=== PATIENT | male | born 1980 | race Caucasian/White ===

== ENCOUNTER → 2016-05-05 | Outpatient (CLI) | payer OTHER ==
[2016-03-04 19:56] VITALS: BP 117/78
[~2016-05-05] MED LIST: ACID1TAB11 PO; ALLA20GE TP; AMIT25TA PO; AZEL137S3 NS; BACI28.43 TP; BACL10TA PO; BACL20TA PO; BISA10SU2 RC; BISA5TAB4 PO; CALC-316 PO; CELE100C PO; CELE200C PO; CHOL10002 PO; CLON0.1T PO; CYCL10TA2 PO; DIAZ5TAB PO; DOCO2CRE TP; DOCU-27 PO; FENT1PAT19 TP; FENT1PAT91 TD; FLUC100T7 PO; FLUC150T PO; FLUT16SP NS; GABA-586 PO; GABA800T2 PO; GUAI-297 PO; GUAI400T27 PO; HC/M25OI TP; HYDR-2666 PO; HYDR-2672 PO; HYDR-2867 PO; HYDR28OI2 TP; IBUP200T77 PO; IPRA3AMP IH; KETO5DRO3 EACHEYE; LACT20SO PO; LIDO15CR9 TP; LIDO5JEL3 MM; LORA10TA3 PO; MAGN2400 PO; MAGN400O4 PO; MELA5TAB PO; METH1TAB20 PO; MIDO10TA PO; MIDO5TAB PO; MINE120C TP; MULT-460 PO; NITR1OIN TD; ONDA4TAB7 PO; OXYB5TAB7 PO; PANT20TA2 PO; PANT40TA5 PO; PILO7.5T PO; PREG25CA PO; PREG50CA PO; SENN8.6T3 PO; SENN8.6T99 PO; SODI1PAC NS; TETR250C3 PO; [UNRECOGNIZED DRUG - CODE] MM; [UNRECOGNIZED DRUG - CODE] PO; [UNRECOGNIZED DRUG - CODE] PO; [UNRECOGNIZED DRUG - CODE] TP
[2016-05-05 16:53] LABS: BILIRUBIN,URINE NEGATIVE (NEG); GLUCOSE,URINE 500 mg/dL (NEG); NITRITE,URINE NEGATIVE (NEG); PH,URINE 5.5; PROTEIN,URINE NEGATIVE (NEG-TRACE); UROBILINOGEN,URINE 0.2 mg/dL (0.2 mg/dL)
[2016-05-05 17:02] LABS: BACTERIA,URINE MANY /HPF (0-FEW); WBC,URINE TNTC /HPF (0-4)
[2016-05-05 17:03] LABS: SQUAMOUS EPITHELIAL CELL,UR MOD /LPF
== END | disposition home or self-care (01) ==
LOC: SPEC 16:21
PROVIDERS: ATTEND Family Medicine
DX: R82.90 Unspecified abnormal findings in urine (principal)
CPT/HCPCS: 81001; 87086

== ENCOUNTER → 2016-05-15 | Outpatient (CLI) | payer OTHER ==
[2016-03-04 19:56] VITALS: BP 117/78
[~2016-05-15] MED LIST changes: +ACET500T68 PO; +ASPI81TA9 PO; +ATOR40TA59 PO; +MULT-638 PO; +[UNRECOGNIZED DRUG - CODE] PO
[2016-05-15 15:58] LABS: BILIRUBIN,URINE NEGATIVE (NEG); GLUCOSE,URINE >=1000 mg/dL (NEG); NITRITE,URINE NEGATIVE (NEG); PROTEIN,URINE NEGATIVE (NEG-TRACE); UROBILINOGEN,URINE 0.2 mg/dL (0.2 mg/dL)
[2016-05-15 16:07] LABS: BACTERIA,URINE 0 /HPF (0-FEW); RBC,URINE 0 /HPF (0-2); YEAST,URINE PRESENT /HPF
== END | disposition home or self-care (01) ==
LOC: SPEC 15:40
PROVIDERS: ATTEND Family Medicine
DX: N39.0 Urinary tract infection, site not specified (principal)
CPT/HCPCS: 81001

== ENCOUNTER 2016-05-16 23:36 | Inpatient (IN) | payer MEDICARE, OTHER ==
[~2016-05-16] VITALS: Ht 182.9 cm; Wt 111.1 kg
[~2016-05-16 23:36] MED LIST changes: -ACET500T68 PO; -ASPI81TA9 PO; -ATOR40TA59 PO; -MULT-638 PO; -[UNRECOGNIZED DRUG - CODE] PO
[2016-05-16] MEDS: IV NORMAL SALINE 1000ML BAG 1,000 ML IV SCH (23:58)
[2016-05-17] VITALS (31 sets, daily range): BP systolic 48–111; BP diastolic 42–89
[2016-05-17] MEDS ORDERED: ACETAMINOPHEN 650 MG SUPP.RECT. ONE (00:09)
[2016-05-17] MEDS ORDERED: VANCOMYCIN PER PHARMACY MC PRN (00:30)
[2016-05-17] MEDS ORDERED: 0.9 % SODIUM CHLORIDE 10 ML DISP.SYRIN. IV PRN (00:30)
[2016-05-17] MEDS: IV NORMAL SALINE 1000ML BAG 1,000 ML IV SCH ×5 (00:32→20:15)
[2016-05-17 00:45] LABS: BASO % 0 % (0-3); EOS % 0 % (0-3); HEMOGLOBIN 14.6 g/dL (13.0-17.5); LYMPH # 0.9 x10^3/uL (1.0-4.8); LYMPH % 6 % (24-48); MEAN CORPUSCULAR HEMOGLOBIN 30 pg (25-35); MEAN CORPUSCULAR HGB CONC 33 g/dL (31-37); MEAN CORPUSCULAR VOLUME 90 fL (79-100); MONO % 9 % (0-9); NEUT % 86 % (31-73); PLATELET COUNT 273 x10^3/uL (140-400); RED BLOOD COUNT 4.88 x10^6/uL (4.30-5.70); RED CELL DISTRIBUTION WIDTH 14.9 % (11.5-14.5); WHITE BLOOD COUNT 16.7 x10^3/uL (4.0-11.0)
[2016-05-17 00:53] LABS: INR 1.5 (0.8-1.1); PROTHROMBIN TIME PATIENT 16.9 SEC (11.7-14.0)
[2016-05-17 00:54] LABS: CALCIUM 8.4 mg/dL (8.5-10.1); POTASSIUM 4.3 mmol/L (3.5-5.1)
[2016-05-17 01:00] LABS: ALBUMIN/GLOBULIN RATIO 0.5 (1.0-1.7)
[2016-05-17] MEDS ORDERED: HYDROCORTISONE SOD SUCC/PF 100 MG/2 ML VIAL. IV ONE (01:00)
[2016-05-17] MEDS ORDERED: VANCOMYCIN 2 GM in IV NORMAL SALINE 500ML BAG 500 ML IV ONE (01:00)
[2016-05-17 01:25] LABS: PLT ESTIMATE ADEQUATE (ADEQUATE); TOXIC GRANULATION SLIGHT
[2016-05-17] MEDS ORDERED: ONDANSETRON PF 4 MG/2 ML VIAL. IV PRN (01:45)
[2016-05-17 01:54] LABS: BILIRUBIN,URINE MODERATE (NEG); GLUCOSE,URINE NEGATIVE (NEG); NITRITE,URINE POSITIVE (NEG); PROTEIN,URINE 30 mg/dL (NEG-TRACE)
[2016-05-17 02:02] LABS: BACTERIA,URINE MANY /HPF (0-FEW); RBC,URINE 0 /HPF (0-2); SQUAMOUS EPITHELIAL CELL,UR FEW /LPF; YEAST,URINE PRESENT /HPF
[2016-05-17] MEDS: NOREPINEPHRINE VIAL 8 MG in IV NORMAL SALINE 250ML 250 ML IV PRN ×3 (02:28→21:16)
[2016-05-17] MEDS: NORMAL SALINE IV SCH ×2 (02:29→11:24)
[2016-05-17] MEDS: TOBRAMYCIN SULFATE IV SCH (02:29)
[2016-05-17 03:33] LABS: OBC FLU VALID
[2016-05-17] MEDS: TOBRAMYCIN PER PHARMACY MC PRN ×2 (03:49→13:33)
[2016-05-17] MEDS ORDERED: PNEUMOCOCCAL VAX SCREEN BY RX. MC PRN (04:45)
[2016-05-17] MEDS ORDERED: INFLUENZA VAX SCREEN BY RX. MC PRN (04:45)
[2016-05-17] MEDS ORDERED: ACID1TAB11 PO (05:06)
[2016-05-17] MEDS ORDERED: ATOR40TA59 PO (05:06)
[2016-05-17] MEDS ORDERED: [UNRECOGNIZED DRUG - CODE] PO (05:06)
[2016-05-17] MEDS ORDERED: ASPI81TA9 PO (05:06)
[2016-05-17] MEDS ORDERED: MULT-638 PO (05:06)
[2016-05-17] MEDS ORDERED: ACET500T68 PO (05:06)
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
[2016-05-17] MEDS ORDERED: MORPHINE SULFATE 2 MG/ML DISP.SYRIN. IV PRN (05:45)
[2016-05-17] MEDS ORDERED: LORAZEPAM 2 MG/ML VIAL IV PRN ×2 (05:45)
[2016-05-17] MEDS ORDERED: MORPHINE SULFATE 4 MG/ML DISP.SYRIN. IV PRN (05:45)
[2016-05-17] MEDS ORDERED: HALOPERIDOL LACT 5 MG/ML VIAL. IV PRN (05:45)
--- NOTE | 2016-05-17 06:39 | EKG ---
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 RI6.01 Unconfirmed report No previous ECG available for comparison Electronically Signed On 05-20-2016 13:53:03 [employer] by Nicholas Villegas
--- NOTE | 2016-05-17 07:24 | RAD ---
Exam performed: One view chest. History: Sepsis and fever. Date of service: 05/17/16. Comparison: One view chest from 03/01/16. Single AP semiupright portable view chest findings: Study somewhat limited due to rotation. Apparent cardiomegaly and central vascular congestion is noted. Small right pleural effusion with fluid in the minor fissure. Left lung is clear. Impression: Study somewhat limited due to rotation. Apparent cardiomegaly with central vascular congestion and small right pleural effusion. Findings may be related to CHF. Correlate clinically.
--- NOTE | 2016-05-17 07:50 | ACF ---
Admit Criteria Forms Admit Criteria Forms Admit Criteria Forms SEVERE SEPSIS Clinical Indications for Admission to Inpatient Care (Place 'X' for any and all applicable criteria): Hospital admission is needed for appropriate care of the patient because of ANY ONE of the following: [X]I. Hemodynamic instability indicated by ANY ONE of the following(1)(2)(3)( 4)(5): []a. Vital sign abnormality not readily corrected by appropriate treatment within 12 to 24 hours indicated by ANY ONE of the following: []i) Tachycardia that persists despite appropriate treatment []ii) Hypotension that persists despite appropriate treatment []iii) Orthostatic vital sign changes that persist despite appropriate treatment [X]b. Vital sign abnormality that is severe indicated by ANY ONE of the following: [X]i. Inadequate perfusion indicated by ANY ONE of the following: [X]1) Lactic acidosis (greater than 2 mmol/L) []2) New abnormal capillary refill (greater than 3 seconds) []3) Reduced urine output [X]4) New altered mental status []5) Myocardial Ischemia []ii. Mean arterial pressure [A] less than 60 mm Hg []iii. Mean arterial pressure[A] less than 70 mm Hg after 30 minutes of appropriate treatment (eg, fluid resuscitation) []iv. Sustained heart rate greater than 120 beats per minute in adult []v. IV inotropic or vasopressor medication required to maintain adequate blood pressure or perfusion []II. Systemic or infectious condition causing severe symptoms or findings not responsive to emergency or observation care treatment (as appropriate) indicated by ANY ONE of the following: []a. Cardiac arrhythmias of immediate concern(1)(2)(3) []b. Severe endocrine disorder (eg, thyrotoxicosis, adrenal insufficiency)(4)(5) []c. Seizures (eg, new or recurrent)(6) []d. New-onset end organ failure or dysfunction as indicated by ANY ONE of the following: []i. Acute unexplained hypoxemia (eg, not from lung infection or chronic disease)(7)(8)(9) []ii. Acute renal failure as indicated by new onset of ANY ONE of the following(10)(11)(12)(13)(14): []1) 3-fold rise in serum creatinine from baseline []2) Serum creatinine greater than 4 mg/dL (354 micromoles/L) with acute rise greater than 0.5 mg/dL (44.2 micromoles/L) []3) Reduction of more than 75% in estimated glomerular filtration rate from baseline. []4) Estimated glomerular filtration rate less than 35 mL/min/1.73m2 ( 0.59 mL/sec/1.73m2) in child younger than 18 years. []5) Cessation of urine output indicated by ALL of the following: []A. Adequate volume status []B. Inadequate urine output as indicated by ANY ONE of the following: []a. Urine output less than 0.3 mL/kg/hr for 24 hours []b. Anuria (urine output less than 0.1 mL/kg/hr) for 12 hours []iii. Acute mental status changes(15) []iv. Acute hepatic failure (eg, plasma bilirubin greater than 4 mg/ dL (68 micromoles/L), new INR greater than 2.0)(16)(17) []e. Unmanageable nausea and vomiting(18) []f. New-onset or uncontrolled central diabetes insipidus(19)(20) []g. Clinically significant dehydration(18)(21) []h. Hypoglycemia(22) []i. Acidosis (pH less than 7.35) or alkalosis (pH greater than 7.45)( 22)(23) []j. Toxic drug level that indicates need for specific monitoring or treatment(24)(25) []k. Severe electrolyte abnormalities indicated by ALL of the following( 1)(2)(3): []i. Electrolytes and associated findings are not as expected for patient baseline or acceptable treatment effects. []ii. Severe abnormalities indicated by ANY ONE of the following: []1) Sodium less than 130 mEq/L (mmol/L) (new) []2) Sodium less than 135 mEq/L (mmol/L) with ANY ONE of the following: []A. Uncorrectable (to near normal or chronic baseline) after trial of outpatient and emergency treatment []B. Altered mental status []C. Seizures []D. Severe medical etiology requiring inpatient management (eg , heart failure, hypovolemia) []3) Sodium greater than 155 mEq/L (mmol/L) []4) Sodium greater than 150 mEq/L (mmol/L) with ANY ONE of the following: []A. Uncorrectable (to near normal or chronic baseline) with outpatient and emergency treatment []B. Altered mental status []C. Seizures []D. Severe medical etiology (eg, hypovolemia, diabetes insipidus) []5) Potassium less than 2.5 mEq/L (mmol/L) despite outpatient and emergency treatment []6) Potassium less than 3 mEq/L (mmol/L) with ANY ONE of the following : []A. Weakness []B. Cardiac abnormality (eg, arrhythmia, conduction disturbance ) []C. Cardiac ischemia []D. Ileus []E. Ongoing medical cause requiring inpatient management (eg, acute renal wasting or SIADH) []F. Other severe symptoms []7) Potassium greater than 6.5 mEq/L (mmol/L) []8) Potassium greater than 5 mEq/L (mmol/L) with ANY ONE of the following: []A. Uncorrectable (to near normal or chronic baseline) with outpatient and emergency treatment []B. Severe ECG findings[A] []C. Acute worsening of renal failure (creatinine greater than 2.5 mg/dL (221 micromoles/L) or significant elevation for age and size) []D. Severe weakness []E. Severe medical etiology (eg, hemolysis, infection, drug overdose) []9) Calcium less than 7 mg/dL (1.75 mmol/L) despite outpatient and emergency treatment(5) []10) Calcium less than 8 mg/dL (2 mmol/L) with significant symptoms or findings (eg, altered mental status, muscle spasms, seizures, breathing difficulty, cardiac abnormality (eg, arrhythmia or conduction disturbance))(5) []11) Calcium greater than 14 mg/dL (3.5 mmol/L)(5) []12) Calcium greater than 12 mg/dL (3 mmol/L) with ANY ONE of the following(5): []A. Uncorrectable (to near normal or chronic baseline) with outpatient and emergency treatment []B. Significant dehydration or hypovolemia as indicated by ALL of the following(3)(6)(7): []a. Not resolved with initial treatments []b. Clinically significant dehydration as indicated by ANY ONE of the following: [](1) Vomiting refractory to outpatient treatment (ie, precluding oral rehydration) [](2) Inability to drink [](3) Hypernatremia or other electrolyte abnormality unable to be corrected with outpatient and emergency treatment [](4) Failure to remain hydrated with outpatient therapy [](5) Reduced urine output [](6) Hypotension [](7) Serious cause for dehydration requiring acute hospitalization ( eg, bowel obstruction, increased intracranial pressure, infectious cause) [](8) Child with ANY ONE of the following(8): [](i) Severe abdominal tenderness [](ii) Adequate care not available at home [](iii) Severe dehydration (greater than 9% loss of body weight) []C. Significant symptoms or findings (eg, altered mental status , cardiac abnormality (eg, arrhythmia, conduction disturbance), malignant etiology requiring inpatient treatment) []13) Phosphorus less than 1 mg/dL (0.32 mmol/L) []14) Phosphorus less than 1.5 mg/dL (0.48 mmol/L) with ANY ONE of the following: []A. Patient unresponsive to outpatient and emergency treatment []B. Significant symptoms or findings (eg, weakness, altered mental status, breathing difficulty, seizures, rhabdomyolysis) []15) Phosphorus greater than 10 mg/dL (3.2 mmol/L) []16) Phosphorus greater than 4.5 mg/dL (1.45 mmol/L) (new) with ANY ONE of the following: []A. Severe medical etiology (eg, crush injury, acute renal failure) []B. Associated hypocalcemia with significant findings (eg, neurologic symptoms, altered mental status, muscle spasms, seizures, breathing difficulty, cardiac abnormality (eg, arrhythmia, conduction disturbance)) []16) Magnesium less than 1 mg/dL (0.41 mmol/L) []17) Magnesium less than 1.5 mg/dL (0.62 mmol/L) with ANY ONE of the following: []A. Patient unresponsive to outpatient and emergency treatment []B. Associated hypocalcemia with significant findings (eg, altered mental status, muscle spasms, seizures, breathing difficulty, cardiac abnormality (eg, arrhythmia, conduction disturbance)) []C. Associated hypokalemia (potassium less than 3 mEq/L (mmol/L )) with risk of arrhythmia []18) Magnesium greater than 4 mEq/L (2 mmol/L) []19) Magnesium greater than 2.5 mEq/L (1.25 mmol/L) with significant symptoms or findings (eg, weakness, altered mental status, cardiac abnormality (eg, arrhythmia, conduction disturbance), breathing difficulty, severe medical etiology (eg, renal failure, hypovolemia)) []20) Uric acid greater than 20 mg/dL (1190 micromoles/L)(9) []21) Uric acid greater than 8 mg/dL (476 micromoles/L) with significant symptoms or findings of tumor lysis syndrome (eg, creatinine greater than 1.5 times upper limit of normal, cardiac abnormality (eg , arrhythmia, conduction disturbance), seizure)(9) []III. High fever or other high-risk infection situation as indicated by ANY ONE of the following(26)(27)(28): []a. Outpatient and observation care antimicrobial treatment unavailable, not effective, or not appropriate []b. Documented bacteremia []c. Temperature greater than 104.9 degrees F (40.5 degrees C) (oral) []d. Temperature greater than 103.1 degrees F (39.5 degrees C) (oral) or less than 96.8 degrees F (36 degrees C) (rectal) that does not respond to emergency treatment and observation care []IV. High-risk febrile neutropenia[A] as indicated by ANY ONE of the following(29)(30)(31)(32): []a. Profound neutropenia[B] anticipated to extend for more than 7 days []b. Hemodynamic instability []c. Hypoxemia []d. Tachypnea []e. Altered mental status []f. New-onset abdominal pain []g. New-onset vomiting or diarrhea []h. Oral or gastrointestinal mucositis that interferes with swallowing or causes severe diarrhea []i. Focal infection (eg, cellulitis, pneumonia, central line or catheter infection, perirectal abscess) []j. Renal insufficiency (eg, GFR of less than 30 mL/min/1.73m2 (0.5 mL/sec /1.73m2)). []k. Severe liver dysfunction (transaminase levels greater than 5 times normal) []l. Platelet count less than 50,000/mm3 (50 x109/L)(33) []m. Leukemia or lymphoma induction therapy []n. Leukemia not in complete remission or with evidence of disease progression []o. Bone marrow transplant patient []p. Alemtuzumab being used for therapy []q. Multinational Association for Supportive Care in Cancer (MASCC) Risk Index score of less than 21[C](33)(35). []V. Isolation required (eg, tuberculosis that requires isolation, Ebola infection)[D](36)(37)(38)(39)(40) []. Gangrene that requires treatment beyond emergency or observation level care(41)(42) []VII. Antitoxin administration and ongoing observation required (eg, tetanus, botulism)(43)(44) []. Suspected infection with rapid progression or severe symptoms as indicated by ANY ONE of the following(45): []a. Streptococcal or staphylococcal toxic shock(46) []b. Diphtheria(47) []c. Hantavirus(48) []d. Severe acute respiratory syndrome(8)(49) []e. Anthrax(50) []f. Ebola[D](36)(37)(38) []g. Necrotizing soft tissue infection(41)(42) []h. Plague(50) []i. Other suspected infection that requires care beyond emergency or observation level care []VII. Severe adverse drug or systemic toxin reaction as indicated by ANY ONE of the following(24): []a. Serotonin syndrome(51)(52) []b. Neuroleptic malignant syndrome(51)(52) []c. Cholinergic syndrome with severe symptoms (eg, bronchorrhea, weakness , mental status changes, seizures)(53) []d. Anticholinergic syndrome []e. Sympathetic syndrome with severe symptoms (eg, seizures, mental status changes, cardiac dysrhythmias) []f. Other severe adverse drug or systemic toxin reaction that remains after emergency or observation level care (as appropriate) []VIII. Allergic reaction with severe symptoms (not responsive to emergency or observation care treatment as appropriate), including ANY ONE of the following(54): []a. Airway edema (pharyngeal, epiglottic, or laryngeal edema) []b. Stridor []c. Respiratory failure []d. Bronchospasm []e. Hypotension []IX. Environmental emergency (not responsive to emergency or observation care treatment as appropriate) as indicated by ANY ONE of the following(55)(56): []a. Hyperthermia []b. Heat stroke []c. Heat exhaustion []d. Hypothermia (temperature less than 95 degrees F (35 degrees C) rectal) (57) []e. Electrocution(58) []X. Complications of transplanted organ (ie, not covered elsewhere)[E] indicated by ANY ONE of the following(59): []a. Acute graft rejection (or graft vs. host disease)[F] requiring inpatient management (eg, intravenous immunosuppression)(60)(61)(62)( 63) []b. Acute failure of transplanted organ necessitating inpatient care (eg, cannot be managed in other setting) []c. Infection requiring inpatient management (eg, Hemodynamic instability, need for intravenous antimicrobial treatment)(64)(65) []d. Other complication of transplanted organ requiring inpatient management []XI. Systemic or Infectious Condition condition, symptom, or finding for which emergency and observation care have failed or are not considered appropriate. See General Criteria: Observation Care, General Admission Criteria or Pediatric General Admission Criteria guideline as appropriate. (Contents from SEVERE SEPSIS and SYSTEMIC OR INFECTIOUS CONDITION clinical indications for admission to inpatient care have been integrated in this form) The original [facility] [employer] content created by [facility] has been revised. The portions of the content which have been revised are identified through the use of italic text or in bold and [facility] has neither reviewed nor approved the modified material. All other unmodified content is copyright [facility]. Please see references footnoted in the original [facility] edition 2016 JEFFREY BROCK May 17, 2016 07:50
[2016-05-17 07:59] LABS: HCO3 ABG 15 mmol/L (21-28); PCO2 ABG 33 mmHg (35-46); PH ABG 7.28 (7.35-7.45); PO2 ABG 81 mmHg (85-108); SAT O2 ABG 95 % (92-99)
--- NOTE | 2016-05-17 08:24 | PDOC ---
Infectious Disease Note ROS ROS Vital Sign Vital Signs Vital Signs Date Time Temp Pulse Resp B/P Pulse Ox O2 Delivery O2 Flow Rate FiO2 05/17/16 06:15 144 14 84/64 96 Room Air 05/17/16 03:15 101.2 101.2 05/17/16 03:09 2 Labs Lab Laboratory Tests Test 05/17/16 00:26 05/17/16 01:46 05/17/16 03:00 05/17/16 04:55 White Blood Count 16.7x10^3/uL (4.0-11.0) Red Blood Count 4.88x10^6/uL (4.30-5.70) Hemoglobin 14.6g/dL (13.0-17.5) Hematocrit 44.0% (39.0-53.0) Mean Corpuscular Volume 90fL (79-100) Mean Corpuscular Hemoglobin 30pg (25-35) Mean Corpuscular Hemoglobin Concent 33g/dL (31-37) Red Cell Distribution Width 14.9% (11.5-14.5) Platelet Count 273x10^3/uL (140-400) Neutrophils (%) (Auto) 86% (31-73) Lymphocytes (%) (Auto) 6% (24-48) Monocytes (%) (Auto) 9% (0-9) Eosinophils (%) (Auto) 0% (0-3) Basophils (%) (Auto) 0% (0-3) Neutrophils # (Auto) 14.3x10^3uL (1.8-7.7) Lymphocytes # (Auto) 0.9x10^3/uL (1.0-4.8) Monocytes # (Auto) 1.4x10^3/uL (0.0-1.1) Eosinophils # (Auto) 0.0x10^3/uL (0.0-0.7) Basophils # (Auto) 0.0x10^3/uL (0.0-0.2) Segmented Neutrophils % 50% (35-66) Band Neutrophils % 33% (0-9) Lymphocytes % 7% (24-48) Monocytes % 9% (0-10) Metamyelocytes % 1% (0-0) Toxic Granulation Slight Platelet Estimate Adequate (ADEQUATE) Prothrombin Time 16.9SEC (11.7-14.0) Prothromb Time International Ratio 1.5 (0.8-1.1) Activated Partial Thromboplast Time 36SEC (24-38) Sodium Level 128mmol/L (136-145) Potassium Level 4.3mmol/L (3.5-5.1) Chloride Level 95mmol/L (98-107) Carbon Dioxide Level 22mmol/L (21-32) Anion Gap 11 (6-14) Blood Urea Nitrogen 28mg/dL (8-26) Creatinine 1.0mg/dL (0.7-1.3) Estimated GFR (Cockcroft-Gault) 85.0 BUN/Creatinine Ratio 28 (6-20) Glucose Level 390mg/dL (70-99) Lactic Acid Level 2.2mmol/L (0.4-2.0) 2.9mmol/L (0.4-2.0) Calcium Level 8.4mg/dL (8.5-10.1) Total Bilirubin 1.0mg/dL (0.2-1.0) Aspartate Amino Transf (AST/SGOT) 15U/L (15-37) Alanine Aminotransferase (ALT/SGPT) 14U/L (16-63) Alkaline Phosphatase 121U/L (46-116) Total Protein 6.0g/dL (6.4-8.2) Albumin 2.0g/dL (3.4-5.0) Albumin/Globulin Ratio 0.5 (1.0-1.7) Urine Collection Type Unknown Urine Color Katerina Urine Clarity Cloudy Urine pH 5.0 Urine Specific [place] 1.025 Urine Protein 30mg/dL (NEG-TRACE) Urine Glucose (UA) Negativemg/dL (NEG) Urine Ketones (Stick) Tracemg/dL (NEG) Urine Blood Negative (NEG) Urine Nitrite Positive (NEG) Urine Bilirubin Moderate (NEG) Urine Urobilinogen Dipstick 1.0mg/dL (0.2 mg/dL) Urine Leukocyte Esterase Small (NEG) Urine RBC 0/HPF (0-2) Urine WBC 5-10/HPF (0-4) Urine Squamous Epithelial Cells Few/LPF Urine Amorphous Sediment Present/HPF Urine Bacteria Many/HPF (0-FEW) Urine Hyaline Casts Many/HPF Urine Mucus Marked/LPF Urine Yeast Present/HPF Influenza Type A Antigen Negative (NEGATIVE) Influenza Type B Antigen Negative (NEGATIVE) Objective Assessment Sepsis - POA. Hydrocortisone times one UTI - POA street changed in ER Acute Encephalopathy Multiple abx allergies has tolerated Meropenem/Fluconazole ? 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
[2016-05-17] MEDS ORDERED: SUCCINYLCHOLINE 200 MG/10 ML VIAL. ONE (08:33)
[2016-05-17] MEDS ORDERED: ETOMIDATE 20 MG/10 ML VIAL. IV ONE ×2 (08:34→08:45)
[2016-05-17] MEDS ORDERED: SUCCINYLCHOLINE 200 MG/10 ML VIAL. IV ONE (08:45)
[2016-05-17] MEDS ORDERED: NORMAL SALINE IV SCH (09:00)
[2016-05-17] MEDS ORDERED: DAPTOMYCIN IV SCH (09:00)
[2016-05-17 09:14] LABS: FIO2 ABG 28
[2016-05-17] MEDS ORDERED: ACETAMINOPHEN 650 MG SUPP.RECT. PR PRN (09:15)
[2016-05-17] MEDS: MICAFUNGIN 100 MG in IV DEXTROSE 5% 100 ML IV SCH (09:46)
[2016-05-17] MEDS: MEROPENEM 1 GM in IV NORMAL SALINE 100ML 100 ML IV SCH ×3 (09:46→22:38)
[2016-05-17] MEDS: MIDAZOLAM PREMIX 100 ML IV PRN (09:46)
[2016-05-17] MEDS ORDERED: VANCOMYCIN 1.5 GM in IV NORMAL SALINE 500ML BAG 500 ML IV SCH (10:00)
--- NOTE | 2016-05-17 10:33 | EKG ---
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 ABNORMAL ECG RI6.01 No previous ECG available for comparison Electronically Signed On 05-20-2016 13:56:11 COUNT TEAM MEMBER by Nicholas Villegas
[2016-05-17 10:46] LABS: CALCIUM 8.1 mg/dL (8.5-10.1); CREATININE 0.8 mg/dL (0.7-1.3); POTASSIUM 5.1 mmol/L (3.5-5.1)
[2016-05-17] MEDS ORDERED: PHENYLEPHRINE INJ 80 MG in IV NORMAL SALINE 250ML 250 ML IV PRN (11:00)
[2016-05-17] MEDS ORDERED: DIGOXIN 500 MCG/2 ML AMPUL. IV ONE (11:00)
[2016-05-17] MEDS: DAPTOMYCIN IV SCH (11:24)
[2016-05-17] MEDS ORDERED: METOPROLOL TARTRATE 5 MG/5 ML VIAL. IVP ONE (11:30)
[2016-05-17] MEDS: HYDROCORTISONE SOD SUCC/PF 100 MG/2 ML VIAL. IV SCH ×3 (11:35→22:28)
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
[2016-05-17] MEDS ORDERED: METOPROLOL TARTRATE 5 MG/5 ML VIAL. IVP SCH (12:00)
[2016-05-17] MEDS ORDERED: METOPROLOL TARTRATE 5 MG/5 ML VIAL. IVP PRN (12:01)
[2016-05-17 12:02] LABS: HCO3 ABG 13 mmol/L (21-28); PCO2 ABG 35 mmHg (35-46); PO2 ABG 107 mmHg (85-108); SAT O2 ABG 97 % (92-99)
[2016-05-17 12:15] LABS: FIO2 ABG 50; PH ABG 7.18 (7.35-7.45)
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
[2016-05-17] MEDS ORDERED: HEPARIN for IV BOLUS 10,000 UNIT/10 ML VIAL. ONE (12:26)
[2016-05-17] MEDS ORDERED: LIDOCAINE 1% / SOD BICARB 8.4% 20 ML VIAL. IJ ONE (12:30)
[2016-05-17 12:49] LABS: HEMATOCRIT 53.8 % (39.0-53.0); HEMOGLOBIN 17.5 g/dL (13.0-17.5); RED BLOOD COUNT 5.88 x10^6/uL (4.30-5.70); RED CELL DISTRIBUTION WIDTH 14.9 % (11.5-14.5); WHITE BLOOD COUNT 30.8 x10^3/uL (4.0-11.0)
[2016-05-17 12:58] LABS: INR 1.4 (0.8-1.1); PROTHROMBIN TIME PATIENT 16.3 SEC (11.7-14.0)
--- NOTE | 2016-05-17 12:58 | PDOC ---
Date and Time LATE ENTRY I was called emergently to ICU to intubate patient. Sepsis with altered mental status.pH 7.28 PCO2 33 PO2 80. Given 100% O2 by bag mask. SpO2 92-94%. Etomidate 20mg and succinylcholine 100mg were given. Glidescope used. Neck kept neutral throughout. 8.0 placed DVC. BSBE and ETCO2 present. CXR confirmed depth of insertion. I was called back several hours later. Patient with very low BP despite max dose norepinephrine. 20g L radial art line inserted. BP 74/50. I transduced his femoral venous line- the pressure was 8. Despite having 8L of fluid over the past 8 hours he is still volume contracted. I asked nurses to recheck his Hb (was normal before all the IV fluid) before determining what additional volume should be given. Current Medications Current Medications Acetaminophen (Tylenol) 650 mg STK-MED ONCE .ROUTE ; Start 05/17/16 at 00:09; Stop 05/17/16 at 00:10; Status DC Hydrocortisone Sodium Succinate (Solu-Cortef) 100 mg 1X ONCE IV Last administered on 05/17/16 02:06; Start 05/17/16 at 01:00; Stop 05/17/16 at 01:01; Status DC Sodium Chloride 10 ml 10 ml QSHIFT PRN IV AFTER MEDS AND BLOOD DRAWS; Start 05/17/16 at 00:30 Sodium Chloride (Iv Sodium Chloride 0.9% 1000ml Bag) 1,000 ml @ 750 mls/hr Q1H20M IV Last administered on 05/17/16 01:40; Start 05/17/16 at 00:17; Stop 05/17/16 at 04:16; Status DC Vancomycin HCl 1 each 1 each PRN DAILY PRN PHARMACY TO DOSE Last administered on 05/17/16 03:33; Start 05/17/16 at 00:30; Stop 05/17/16 at 08:24; Status DC Levofloxacin/ Dextrose 150 ml @ 100 mls/hr 1X ONCE IV Last administered on 00:54; Start 05/17/16 at 00:30; Stop 05/17/16 at 01:59; Status DC Vancomycin HCl 2 gm/Sodium Chloride 500 ml @ 250 mls/hr 1X ONCE IV Last administered on 05/17/16 01:43; Start 05/17/16 at 01:00; Stop 05/17/16 at 02:59; Status DC Norepinephrine Bitartrate/Sodium Chloride (Levophed Vial/ Iv Sodium Chloride 0.9 % 250ml) 258 ml @ 0 mls/hr CONT PRN IV PER PROTOCOL Last administered on 12:07; Start 05/17/16 at 01:45 Ondansetron HCl (Zofran) 4 mg PRN Q8HRS PRN IV NAUSEA/VOMITING; Start 05/17/16 at 01:45; Stop 05/18/16 at 01:44 Tobramycin Sulfate 1 each 1 each PRN DAILY PRN MC DOSING PER PHARMACY Last administered on 05/17/16 03:49; Start 05/17/16 at 02:00 Tobramycin Sulfate 450 mg/ Sodium Chloride 111.25 ml @ 111.25 mls/hr Q24H IV Last administered on 05/17/16 02:29; Start 05/17/16 at 03:00 Vancomycin HCl/ Sodium Chloride (Iv Sodium Chloride 0.9% 500ml Bag) 500 ml @ 250 mls/hr Q8H IV ; Start 05/17/16 at 10:00; Stop 05/17/16 at 10:00; Status DC Vancomycin HCl 1 each 1 each 1X ONCE MC ; Start 05/18/16 at 01:30; Stop 05/18/16 at 01:30; Status DC Sodium Chloride (Iv Sodium Chloride 0.9% 1000ml Bag) 1,000 ml @ 125 mls/hr Q8H IV Last administered on 05/17/16 09:47; Start 05/17/16 at 04:15 Info (Do NOT chart on this placeholder) 1 each PRN DAILY PRN MC PT UNABLE TO RESPOND; Start 05/17/16 at 04:45 Pneumococcal Polyvalent Vaccine (Do NOT chart on this placeholder) 1 each PRN DAILY PRN MC UNABLE TO RESPOND; Start 05/17/16 at 04:45 Haloperidol Lactate (Haldol) 5 mg PRN Q4HRS PRN IV AGITATION Last administered on 05/17/16 05:47; Start 05/17/16 at 05:45 Lorazepam (Ativan) 2 mg PRN Q4HRS PRN IV SEVERE ANXIETY / AGITATION Last administered on 05/17/16 06:48; Start 05/17/16 at 05:45 Lorazepam (Ativan) 1 mg PRN Q4HRS PRN IV MODERATE ANXIETY / AGITATION; Start at 05:45 Morphine Sulfate 2 mg PRN Q4HRS PRN IV MODERATE PAIN; Start 05/17/16 at 05:45 Morphine Sulfate 4 mg 4 mg PRN Q4HRS PRN IV SEVERE PAIN; Start 05/17/16 at 05:45 Meropenem 1 gm/ Sodium Chloride 100 ml @ 200 mls/hr Q8HRS IV Last administered on 05/17/16 09:46; Start 05/17/16 at 09:00 Micafungin Sodium 100 mg/Dextrose 100 ml @ 100 mls/hr Q24H IV Last administered on 05/17/16 09:46; Start 05/17/16 at 09:00 Daptomycin/Sodium Chloride (Cubicin/Iv Sodium Chloride 0.9% 50ml) 50 ml @ 100 mls/hr Q24H IV ; Start 05/17/16 at 09:00; Stop 05/17/16 at 09:09; Status DC Succinylcholine Chloride (Anectine) 200 mg STK-MED ONCE .ROUTE ; Start 05/17/16 at 08:33; Stop 05/17/16 at 08:34; Status DC Etomidate (Amidate) 20 mg STK-MED ONCE IV ; Start 05/17/16 at 08:34; Stop at 08:35; Status DC Etomidate (Amidate) 20 mg 1X ONCE IV Last administered on 05/17/16 08:45; Start 05/17/16 at 08:45; Stop 05/17/16 at 08:46; Status DC Succinylcholine Chloride 100 mg 100 mg 1X ONCE IV Last administered on 08:45; Start 05/17/16 at 08:45; Stop 05/17/16 at 08:46; Status DC Midazolam HCl 100 ml @ 0 mls/hr CONT PRN IV SEE I/O RECORD Last administered on 05/17/16 09:46; Start 05/17/16 at 09:00 Daptomycin/Sodium Chloride (Cubicin/Iv Sodium Chloride 0.9% 50ml) 50 ml @ 100 mls/hr Q24H IV Last administered on 05/17/16 11:24; Start 05/17/16 at 09:30 Acetaminophen (Tylenol) 650 mg PRN Q6HRS PRN [facility] MILD PAIN / TEMP Last administered on 05/17/16 09:40; Start 05/17/16 at 09:15 Hydrocortisone Sodium Succinate 100 mg 100 mg Q8HRS IV Last administered on 05/17 11:35; Start 05/17/16 at 11:00 Phenylephrine HCl/ Sodium Chloride (Oneil-Synephrine Inj/Iv Sodium Chloride 0.9% 250ml) 258 ml @ 0 mls/hr CONT PRN IV SEE I/O RECORD; Start 05/17/16 at 11:00 Digoxin (Lanoxin) 500 mcg 1X ONCE IV Last administered on 05/17/16 11:23; Start 05/17/16 at 11:00; Stop 05/17/16 at 11:01; Status DC Metoprolol Tartrate (Lopressor) 5 mg 1X ONCE IVP Last administered on 11:23; Start 05/17/16 at 11:30; Stop 05/17/16 at 11:31; Status DC Metoprolol Tartrate (Lopressor) 5 mg PRN Q6HRS IVP ; Start 05/17/16 at 12:00; Stop 05/17/16 at 12:00; Status DC Metoprolol Tartrate (Lopressor) 5 mg PRN Q6HRS PRN IVP SEE INSTRUCTIONS; Start 05/17/16 at 12:01 Lidocaine/Sodium Bicarbonate (Buffered Lidocaine 1%) 3 ml 1X ONCE IJ ; Start at 12:30; Stop 05/17/16 at 12:31; Status DC Heparin Sodium/ Sodium Chloride 60 unit 1X ONCE IV ; Start 05/17/16 at 12:30; Stop 05/17/16 at 12:31; Status DC Heparin Sodium (Porcine) 2,500 unit 1X ONCE INT CAT ; Start 05/17/16 at 12:30; Stop 05/17/16 at 12:31; Status DC Heparin Sodium (Porcine) 29956 unit 10,000 unit STK-MED ONCE .ROUTE ; Start 05/17 at 12:26; Stop 05/17/16 at 12:27; Status DC Sodium Bicarbonate 50 meq/Sodium Chloride 1,050 ml @ 150 mls/hr Q7H IV ; Start 05/17/16 at 14:00 Albumin Human (Albuminar) 100 ml @ 100 mls/hr 1X ONCE IV ; Start 05/17/16 at 13 :00; Stop 05/17/16 at 13:59 Active Scripts Active Reported Thera M Plus Tablet (Multivits,Ca,Minerals/Iron/FA) 1 Each Tablet 1 Each PO DAILY Lactaid Fast Act (Lactase) 9,000 Unit Tab.chew 3,000 Unit PO PRN PRN Bacid Caplet (Acidoph/L.bulg/Bif.b/S.thermop) 1 Each Tablet 1 Each PO BID Atorvastatin Calcium 40 Mg Tablet 1 Tab PO QHS Aspirin Ec (Aspirin) 81 Mg Tablet.dr 1 Tab PO DAILY Acetaminophen 500 Mg Tablet 650 Mg PO Q6HRS Acetaminophen 500 Mg Tablet 2 Tab PO Q6HRS FENTANYL 75mcg/hr (Fentanyl) 1 Each Patch.td72 1 Patch TP Q3DAYS Diflucan (Fluconazole) 150 Mg Tablet 150 Mg PO DAILY Lidocaine Hcl 5 Ml Jel..ml. 5 Ml MM PRN QID PRN Baclofen 10 Mg Tablet 30 Mg PO QID Hydrocortisone Acetate 28.4 Gm Cream..g. 28.4 Gm TP PRN BID PRN Hydrocodone-Apap 5-325 (Hydrocodone Bit/Acetaminophen) 1 Each Tablet 1 Tab PO PRN Q4-6HRS PRN Celebrex (Celecoxib) 100 Mg Capsule 1 Cap PO DAILY Senna (Sennosides) 8.6 Mg Tablet 8.6 Mg PO QHS Zofran (Ondansetron Hcl) 4 Mg Tablet 1 Tab PO PRN Q4HRS PRN Robitussin Cough-Chest Dm Liq (Guaifenesin/Dextromethorphan) 118 Ml Liquid 10 Ml PO PRN Q4HRS PRN Hydralazine Hcl 10 Mg Tablet 1 Tab PO PRN TID PRN Gabapentin 300 Mg Capsule 900 Mg PO QID Midodrine Hcl 10 Mg Tablet 10 Mg PO PRN Q3HRS PRN Protonix (Pantoprazole Sodium) 20 Mg Tablet.dr 1 Tab PO DAILY Lyrica (Pregabalin) 50 Mg Capsule 1 Cap PO QID Oxybutynin Chloride 5 Mg Tablet 1 Tab PO TID Pilocarpine Hcl 7.5 Mg Tablet 7.5 Mg PO QID Bacid Caplet (Acidoph/L.bulg/Bif.b/S.thermop) 1 Each Tablet 1 Each PO BID Multiple Vitamin (Multivitamin With Minerals) 1 Each Tablet 1 Each PO DAILY Milk Of Magnesia (Magnesium Hydroxide) 2,400 Mg/10 Ml Oral.susp 2,400 Mg PO PRN DAILY PRN Bisacodyl 10 Mg Supp.rect 10 Mg RC QODAY Cyclobenzaprine Hcl 10 Mg Tablet 10 Mg PO QHS Colace (Docusate Sodium) 100 Mg Capsule 100 Mg PO BID Vitamin D (Cholecalciferol (Vitamin D3)) 1,000 Unit Tablet 1,000 Unit PO DAILY Bisacodyl 5 Mg Tablet.dr 10 Mg PO PRN BID PRN Pertinent Labs/Test Laboratory Tests Test 05/17/16 00:26 05/17/16 01:46 05/17/16 03:00 05/17/16 04:55 White Blood Count 16.7x10^3/uL (4.0-11.0) Red Blood Count 4.88x10^6/uL (4.30-5.70) Hemoglobin 14.6g/dL (13.0-17.5) Hematocrit 44.0% (39.0-53.0) Mean Corpuscular Volume 90fL (79-100) Mean Corpuscular Hemoglobin 30pg (25-35) Mean Corpuscular Hemoglobin Concent 33g/dL (31-37) Red Cell Distribution Width 14.9% (11.5-14.5) Platelet Count 273x10^3/uL (140-400) Neutrophils (%) (Auto) 86% (31-73) Lymphocytes (%) (Auto) 6% (24-48) Monocytes (%) (Auto) 9% (0-9) Eosinophils (%) (Auto) 0% (0-3) Basophils (%) (Auto) 0% (0-3) Neutrophils # (Auto) 14.3x10^3uL (1.8-7.7) Lymphocytes # (Auto) 0.9x10^3/uL (1.0-4.8) Monocytes # (Auto) 1.4x10^3/uL (0.0-1.1) Eosinophils # (Auto) 0.0x10^3/uL (0.0-0.7) Basophils # (Auto) 0.0x10^3/uL (0.0-0.2) Segmented Neutrophils % 50% (35-66) Band Neutrophils % 33% (0-9) Lymphocytes % 7% (24-48) Monocytes % 9% (0-10) Metamyelocytes % 1% (0-0) Toxic Granulation Slight Platelet Estimate Adequate (ADEQUATE) Prothrombin Time 16.9SEC (11.7-14.0) Prothromb Time International Ratio 1.5 (0.8-1.1) Activated Partial Thromboplast Time 36SEC (24-38) Sodium Level 128mmol/L (136-145) Potassium Level 4.3mmol/L (3.5-5.1) Chloride Level 95mmol/L (98-107) Carbon Dioxide Level 22mmol/L (21-32) Anion Gap 11 (6-14) Blood Urea Nitrogen 28mg/dL (8-26) Creatinine 1.0mg/dL (0.7-1.3) Estimated GFR (Cockcroft-Gault) 85.0 BUN/Creatinine Ratio 28 (6-20) Glucose Level 390mg/dL (70-99) Lactic Acid Level 2.2mmol/L (0.4-2.0) 2.9mmol/L (0.4-2.0) Calcium Level 8.4mg/dL (8.5-10.1) Total Bilirubin 1.0mg/dL (0.2-1.0) Aspartate Amino Transf (AST/SGOT) 15U/L (15-37) Alanine Aminotransferase (ALT/SGPT) 14U/L (16-63) Alkaline Phosphatase 121U/L (46-116) Total Protein 6.0g/dL (6.4-8.2) Albumin 2.0g/dL (3.4-5.0) Albumin/Globulin Ratio 0.5 (1.0-1.7) Urine Collection Type Unknown Urine Color Katerina Urine Clarity Cloudy Urine pH 5.0 Urine Specific [place] 1.025 Urine Protein 30mg/dL (NEG-TRACE) Urine Glucose (UA) Negativemg/dL (NEG) Urine Ketones (Stick) Tracemg/dL (NEG) Urine Blood Negative (NEG) Urine Nitrite Positive (NEG) Urine Bilirubin Moderate (NEG) Urine Urobilinogen Dipstick 1.0mg/dL (0.2 mg/dL) Urine Leukocyte Esterase Small (NEG) Urine RBC 0/HPF (0-2) Urine WBC 5-10/HPF (0-4) Urine Squamous Epithelial Cells Few/LPF Urine Amorphous Sediment Present/HPF Urine Bacteria Many/HPF (0-FEW) Urine Hyaline Casts Many/HPF Urine Mucus Marked/LPF Urine Yeast Present/HPF Influenza Type A Antigen Negative (NEGATIVE) Influenza Type B Antigen Negative (NEGATIVE) Test 05/17/16 07:16 05/17/16 09:55 05/17/16 11:45 O2 Saturation 95% (92-99) 97% (92-99) Arterial Blood pH 7.28 (7.35-7.45) 7.18 (7.35-7.45) Arterial Blood pCO2 at Patient Temp 33mmHg (35-46) 35mmHg (35-46) Arterial Blood pO2 at Patient Temp 81mmHg (85-108) 107mmHg (85-108) Arterial Blood HCO3 15mmol/L (21-28) 13mmol/L (21-28) Arterial Blood Base Excess -11mmol/L (-3-3) -14mmol/L (-3-3) FiO2 28 50 Sodium Level 131mmol/L (136-145) Potassium Level 5.1mmol/L (3.5-5.1) Chloride Level 99mmol/L (98-107) Carbon Dioxide Level 16mmol/L (21-32) Anion Gap 16 (6-14) Blood Urea Nitrogen 27mg/dL (8-26) Creatinine 0.8mg/dL (0.7-1.3) Estimated GFR (Cockcroft-Gault) 110.0 Glucose Level 398mg/dL (70-99) Lactic Acid Level 3.0mmol/L (0.4-2.0) Calcium Level 8.1mg/dL (8.5-10.1) Magnesium Level 2.3mg/dL (1.8-2.4) Random Tobramycin Level 3.4mcg/mL Laboratory Tests Test 05/17/16 00:26 05/17/16 01:46 05/17/16 03:00 05/17/16 04:55 White Blood Count 16.7x10^3/uL (4.0-11.0) Red Blood Count 4.88x10^6/uL (4.30-5.70) Hemoglobin 14.6g/dL (13.0-17.5) Hematocrit 44.0% (39.0-53.0) Mean Corpuscular Volume 90fL (79-100) Mean Corpuscular Hemoglobin 30pg (25-35) Mean Corpuscular Hemoglobin Concent 33g/dL (31-37) Red Cell Distribution Width 14.9% (11.5-14.5) Platelet Count 273x10^3/uL (140-400) Neutrophils (%) (Auto) 86% (31-73) Lymphocytes (%) (Auto) 6% (24-48) Monocytes (%) (Auto) 9% (0-9) Eosinophils (%) (Auto) 0% (0-3) Basophils (%) (Auto) 0% (0-3) Neutrophils # (Auto) 14.3x10^3uL (1.8-7.7) Lymphocytes # (Auto) 0.9x10^3/uL (1.0-4.8) Monocytes # (Auto) 1.4x10^3/uL (0.0-1.1) Eosinophils # (Auto) 0.0x10^3/uL (0.0-0.7) Basophils # (Auto) 0.0x10^3/uL (0.0-0.2) Segmented Neutrophils % 50% (35-66) Band Neutrophils % 33% (0-9) Lymphocytes % 7% (24-48) Monocytes % 9% (0-10) Metamyelocytes % 1% (0-0) Toxic Granulation Slight Platelet Estimate Adequate (ADEQUATE) Prothrombin Time 16.9SEC (11.7-14.0) Prothromb Time International Ratio 1.5 (0.8-1.1) Activated Partial Thromboplast Time 36SEC (24-38) Sodium Level 128mmol/L (136-145) Potassium Level 4.3mmol/L (3.5-5.1) Chloride Level 95mmol/L (98-107) Carbon Dioxide Level 22mmol/L (21-32) Anion Gap 11 (6-14) Blood Urea Nitrogen 28mg/dL (8-26) Creatinine 1.0mg/dL (0.7-1.3) Estimated GFR (Cockcroft-Gault) 85.0 BUN/Creatinine Ratio 28 (6-20) Glucose Level 390mg/dL (70-99) Lactic Acid Level 2.2mmol/L (0.4-2.0) 2.9mmol/L (0.4-2.0) Calcium Level 8.4mg/dL (8.5-10.1) Total Bilirubin 1.0mg/dL (0.2-1.0) Aspartate Amino Transf (AST/SGOT) 15U/L (15-37) Alanine Aminotransferase (ALT/SGPT) 14U/L (16-63) Alkaline Phosphatase 121U/L (46-116) Total Protein 6.0g/dL (6.4-8.2) Albumin 2.0g/dL (3.4-5.0) Albumin/Globulin Ratio 0.5 (1.0-1.7) Urine Collection Type Unknown Urine Color Katerina Urine Clarity Cloudy Urine pH 5.0 Urine Specific [place] 1.025 Urine Protein 30mg/dL (NEG-TRACE) Urine Glucose (UA) Negativemg/dL (NEG) Urine Ketones (Stick) Tracemg/dL (NEG) Urine Blood Negative (NEG) Urine Nitrite Positive (NEG) Urine Bilirubin Moderate (NEG) Urine Urobilinogen Dipstick 1.0mg/dL (0.2 mg/dL) Urine Leukocyte Esterase Small (NEG) Urine RBC 0/HPF (0-2) Urine WBC 5-10/HPF (0-4) Urine Squamous Epithelial Cells Few/LPF Urine Amorphous Sediment Present/HPF Urine Bacteria Many/HPF (0-FEW) Urine Hyaline Casts Many/HPF Urine Mucus Marked/LPF Urine Yeast Present/HPF Influenza Type A Antigen Negative (NEGATIVE) Influenza Type B Antigen Negative (NEGATIVE) Test 05/17/16 07:16 05/17/16 09:55 05/17/16 11:45 O2 Saturation 95% (92-99) 97% (92-99) Arterial Blood pH 7.28 (7.35-7.45) 7.18 (7.35-7.45) Arterial Blood pCO2 at Patient Temp 33mmHg (35-46) 35mmHg (35-46) Arterial Blood pO2 at Patient Temp 81mmHg (85-108) 107mmHg (85-108) Arterial Blood HCO3 15mmol/L (21-28) 13mmol/L (21-28) Arterial Blood Base Excess -11mmol/L (-3-3) -14mmol/L (-3-3) FiO2 28 50 Sodium Level 131mmol/L (136-145) Potassium Level 5.1mmol/L (3.5-5.1) Chloride Level 99mmol/L (98-107) Carbon Dioxide Level 16mmol/L (21-32) Anion Gap 16 (6-14) Blood Urea Nitrogen 27mg/dL (8-26) Creatinine 0.8mg/dL (0.7-1.3) Estimated GFR (Cockcroft-Gault) 110.0 Glucose Level 398mg/dL (70-99) Lactic Acid Level 3.0mmol/L (0.4-2.0) Calcium Level 8.1mg/dL (8.5-10.1) Magnesium Level 2.3mg/dL (1.8-2.4) Random Tobramycin Level 3.4mcg/mL LAST VITALS Vital Signs Date Time Temp Pulse Resp B/P Pulse Ox O2 Delivery O2 Flow Rate FiO2 05/17/16 11:31 98 Ventilator 05/17/16 11:30 103.0 130 20 102/71 103.0 05/17/16 07:30 2.0 ZA HEALY MD May 17, 2016 12:58
[2016-05-17] MEDS ORDERED: ALBUMIN HUMAN 25% 100 ML IV ONE (13:00)
[2016-05-17] MEDS ORDERED: IV NORMAL SALINE 1000ML BAG 1,000 ML IV ONE ×3 (13:00→14:15)
--- NOTE | 2016-05-17 13:01 | RAD ---
Portable chest, 05/17/2016: History: Check ET tube placement Comparison is made to the study of earlier the same day. An ET tube has been inserted with its tip located 3.5 cm above the jenny. The patient is rotated to the right. Right parahilar infiltrate has worsened slightly. Mild patchy infiltrates have developed in the left base. An elongated right perihilar opacity may be due to atelectasis or a fissural collection of pleural fluid. There is no other evidence of significant pleural fluid. Postsurgical changes are noted in the cervical spine. IMPRESSION: 1. The ET tube is in satisfactory position. 2. Worsening patchy pulmonary infiltrates compatible with pulmonary edema or pneumonia.
[2016-05-17] MEDS: SODIUM BICARBONATE VIAL 50 MEQ in IV 1/2 NORMAL SALINE 1,000 ML IV SCH ×2 (13:38→21:15)
--- NOTE | 2016-05-17 14:56 | RAD ---
Exam performed: Single view chest. History: Line placement. Date of service: 05/17/16. Comparison: Single view chest from earlier. At 8:49 AM. Single supine portable view chest findings: Placement of a right-sided dialysis type catheter with its tip in the right atrium. There is also a right-sided IJ line. Feeding tube has been placed with its tip in the stomach. The endotracheal tube remains in similar position. Mild cardiomegaly. Ongoing bilateral perihilar interstitial and airspace opacities with central vascular congestion persists. Small right pleural effusion. Impression: 1. Interval placement of lines and tubes as outlined above. No acute abnormality. 2. Ongoing CHF.
--- NOTE | 2016-05-17 15:05 | RAD ---
Procedure: Ultrasound-guided placement of a right IJ temporary hemodialysis catheter and ultrasound-guided placement of a right IJ central line at the bedside in the ICU Clinical Indication: 36-year-old with acute renal insufficiency Sedation: Local anesthesia only Antibiotics: None Contrast: None Sterility: All elements of maximal sterile barrier technique including the use of a cap, mask, sterile gown, sterile gloves, large sterile sheet, appropriate hand hygiene, and 2% chlorhexidine for cutaneous antisepsis (or acceptable alternative antiseptic per current guidelines) were followed for this procedure. Consent: The procedure was explained in its entirety to the patient or the patients designated career representative by a member of the treatment team, including a discussion of the risks, benefits and commonly accepted alternatives to the procedure, as well as the expected consequences of no therapy whatsoever. Discussion of the risks included, but was not limited to, those that are most frequent and those that are rare but possibly severe or life-threatening, as well as the possibility of unforeseen complications. Technique and Findings: Following informed consent, the patient was prepped and draped in usual sterile fashion. Ultrasound interrogation the right neck revealed patency and compressibility of the right internal jugular vein. A Hardcopy ultrasound image was recorded as a 21-gauge micropuncture needle was used to gain access to this vein. The needle was exchanged over wire for serial dilators followed by a 20 cm temporary hemodialysis catheter which exhibits excellent manual flow rates. This catheter was flushed, packed with heparin, capped, and sutured to the skin. Ultrasound interrogation of the high right jugular vein was then performed demonstrating patency and compressibility in this segment. Once again 1% lidocaine was used to achieve local anesthesia. Under ultrasound guidance, a 21-gauge micropuncture needle was used to gain access to this vein. The needle was exchanged over wire for a small dilator followed by a triple-lumen central line. A Hardcopy ultrasound image was recorded. All 3 lm of the catheter flushed and aspirated with ease. The catheter was then sutured to the skin. Complications: No immediate Impression: 1. Ultrasound-guided placement of a right IJ temporary hemodialysis catheter with excellent manual flow rates as described. 2. Ultrasound-guided placement of right IJ central venous catheter as described.
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
--- NOTE | 2016-05-17 15:18 | CARD ---
APPROVED REPORT EXAM: Two-dimensional and M-mode echocardiogram with Doppler and color Doppler. Other Information Quality : Technically LimitedHR: 160bpm Rhythm : Tachycardia INDICATION Septic shock 2D DIMENSIONS RVDd2.6 (2.9-3.5cm)IVSd1.2 (0.7-1.1cm) Aortic Root(2D)3.3 (2.0-3.7cm)LVOT Diameter2.3 (1.8-2.4cm) LVDs4.2 (2.5-4.0cm)LVEF(%)60.0 (>50%) Aortic Valve AoV Peak Olaf.108.1cm/sAoV VTI10.5cm AO Peak GR.4.7mmHgLVOT VTI 13.60cm AO Mean GR.3mmHg Mitral Valve MV E Ommgnlep19.3cm/sMV E Peak Gr.4mmHg MV DECEL [id number] A Wtueevfq36.1cm/s MV E Mean Gr.2mmHgE/A Ratio0.5 MV A [id number] LEFT VENTRICLE The left ventricle is normal size. There is mild concentric left ventricular hypertrophy. The left ve ntricular systolic function is normal and the ejection fraction is within normal range. The Ejection Fraction is 60-65%. There is normal LV segmental wall motion. Transmitral Doppler flow pattern is Gra de I-abnormal relaxation pattern. RIGHT VENTRICLE The right ventricle is normal size. There is normal right ventricular wall thickness. The right ventr icular systolic function is normal. ATRIA The left atrium size is normal. The right atrium size is normal. The interatrial septum is intact wit h no evidence for an atrial septal defect or patent foramen ovale as noted on 2-D or Doppler imaging. AORTIC VALVE The aortic valve is normal in structure and function. The aortic valve is trileaflet. Doppler and Col or Flow revealed no significant aortic regurgitation. There is no significant aortic valvular stenosi s. MITRAL VALVE The mitral valve is normal in structure and function. There is no evidence of mitral valve prolapse. There is no mitral valve stenosis. Doppler and Color Flow revealed no mitral valve regurgitation note d. TRICUSPID VALVE The tricuspid valve is not well visualized. The tricuspid valve is normal in structure and function. Doppler and Color Flow revealed trace tricuspid valve regurgitation. PULMONIC VALVE The pulmonic valve is not well visualized. The pulmonary valve is normal in structure and function. D oppler and Color Flow revealed no pulmonic valvular regurgitation. There is no pulmonic valvular sten osis. GREAT VESSELS The aortic root is normal in size. The ascending aorta is normal in size. The pulmonary artery is nor mal. The IVC was not visualized. PERICARDIAL EFFUSION There is no evidence of significant pericardial effusion. Critical Notification Critical Value: No <Conclusion> The left ventricle is normal size. The left ventricular systolic function is normal and the ejection fraction is within normal range. The Ejection Fraction is 60-65%. There is mild concentric left ventricular hypertrophy. There is no significant aortic valvular stenosis. Doppler and Color Flow revealed no significant aortic regurgitation. Doppler and Color Flow revealed no mitral valve regurgitation noted. Doppler and Color Flow revealed trace tricuspid valve regurgitation. There is no evidence of significant pericardial effusion.
--- NOTE | 2016-05-17 15:19 | RAD ---
Exam performed: Single view abdomen. History: Feeding tube placement. Date of service: 05/17/16. Comparison: KUB from 03/01/16. Single view abdomen KUB findings: There is interval placement of a feeding tube, the tip of which terminates in the stomach. The side holes at the GE junction. Gas distended mildly dilated colonic loops are seen in the upper abdomen. Impression: Feeding tube tip is in the stomach, side holes of the GE junction. This needs to be advanced approximately 8-10 cm for appropriate positioning.
[2016-05-17] MEDS ORDERED: ACETAMINOPHEN 650 MG/20.3 ML SOLUTION. PEG PRN (15:45)
[2016-05-17] MEDS ORDERED: VASOPRESSIN 40 UNIT in IV DEXTROSE 5% 100 ML IV PRN ×2 (16:15→16:30)
[2016-05-17] MEDS ORDERED: SODIUM BICARBONATE IV SCH ×6 (17:00)
[2016-05-17] MEDS ORDERED: POTASSIUM CHLORIDE IV SCH ×6 (17:00)
[2016-05-17] MEDS ORDERED: [UNRECOGNIZED DRUG - OTHER] IV SCH ×6 (17:00)
[2016-05-17] MEDS: METOPROLOL TARTRATE 5 MG/5 ML VIAL. IVP SCH ×3 (17:51→23:51)
[2016-05-17] MEDS: POTASSIUM CHLORIDE IV SCH ×16 (18:00→23:42)
[2016-05-17] MEDS: SODIUM BICARBONATE IV SCH ×16 (18:00→23:42)
[2016-05-17] MEDS: [UNRECOGNIZED DRUG - OTHER] IV SCH ×3 (18:00→23:42)
[2016-05-17] MEDS ORDERED: HEPARIN for IV BOLUS 10,000 UNIT/10 ML VIAL. IV ONE (19:30)
[2016-05-17] MEDS ORDERED: HEPARIN for IV BOLUS 10,000 UNIT/10 ML VIAL. IV PRN ×2 (19:30)
[2016-05-17] MEDS ORDERED: HEPARIN 25,000UTS/500ML PREMIX 500 ML IV PRN (19:30)
[2016-05-17] MEDS: [UNRECOGNIZED DRUG - OTHER] IV SCH ×13 (20:00→23:22)
[2016-05-17] MEDS ORDERED: ALBUMIN HUMAN 5% 250 ML IV ONE (22:00)
[2016-05-17 22:15] LABS: BASO # 0.3 x10^3/uL (0.0-0.2); BASO % 1 % (0-3); EOS % 1 % (0-3); HEMATOCRIT 51.6 % (39.0-53.0); HEMOGLOBIN 16.4 g/dL (13.0-17.5); LYMPH # 7.5 x10^3/uL (1.0-4.8); LYMPH % 17 % (24-48); MEAN CORPUSCULAR HEMOGLOBIN 30 pg (25-35); MEAN CORPUSCULAR HGB CONC 32 g/dL (31-37); MEAN CORPUSCULAR VOLUME 94 fL (79-100); MONO % 8 % (0-9); NEUT % 73 % (31-73); PLATELET COUNT 54 x10^3/uL (140-400); RED BLOOD COUNT 5.51 x10^6/uL (4.30-5.70); RED CELL DISTRIBUTION WIDTH 15.5 % (11.5-14.5)
[2016-05-17 22:17] LABS: WHITE BLOOD COUNT 43.3 x10^3/uL (4.0-11.0)
[2016-05-17 22:35] LABS: CALCIUM 6.6 mg/dL (8.5-10.1); MAGNESIUM 2.2 mg/dL (1.8-2.4); PHOSPHORUS 4.4 mg/dL (2.6-4.7); POTASSIUM 5.2 mmol/L (3.5-5.1)
[2016-05-17] MEDS: DOPAMINE 400MG/250ML PREMIX 250 ML IV PRN (23:44)
[2016-05-18] VITALS (20 sets, daily range): BP systolic 46–88; BP diastolic 34–74
[2016-05-18] MEDS ORDERED: VANCOMYCIN 1 GM in IV NORMAL SALINE 250ML 250 ML IV ONE ×2
[2016-05-18 00:17] LABS: PLT ESTIMATE DECREASED (ADEQUATE); POLYCHROMASIA SLIGHT; SMUDGE CELLS PRESENT; TOXIC GRANULATION SLIGHT; TOXIC VACUOLATION SLIGHT
[2016-05-18 00:18] LABS: BURR CELLS FEW; CRENATED RBC PRESENT
[2016-05-18] MEDS: MIDAZOLAM PREMIX 100 ML IV PRN (01:14)
[2016-05-18] MEDS ORDERED: ALBUMIN HUMAN 5% 500 ML IV ONE (01:30)
[2016-05-18] MEDS: DOPAMINE 400MG/250ML PREMIX 250 ML IV PRN ×3 (02:32→11:43)
[2016-05-18] MEDS: NOREPINEPHRINE VIAL 8 MG in IV NORMAL SALINE 250ML 250 ML IV PRN (02:34)
[2016-05-18] MEDS: [UNRECOGNIZED DRUG - OTHER] IV SCH ×13 (02:44→06:06)
[2016-05-18] MEDS: POTASSIUM CHLORIDE IV SCH ×15 (02:44→06:24)
[2016-05-18] MEDS: SODIUM BICARBONATE IV SCH ×15 (02:44→06:24)
[2016-05-18] MEDS: NORMAL SALINE IV SCH ×2 (03:00→11:44)
[2016-05-18] MEDS: TOBRAMYCIN SULFATE IV SCH (03:00)
[2016-05-18] MEDS: [UNRECOGNIZED DRUG - OTHER] IV SCH ×2 (03:03→06:24)
[2016-05-18] MEDS: IV NORMAL SALINE 1000ML BAG 1,000 ML IV SCH (04:57)
[2016-05-18] MEDS: SODIUM BICARBONATE VIAL 50 MEQ in IV 1/2 NORMAL SALINE 1,000 ML IV SCH ×2 (04:58→11:46)
[2016-05-18] MEDS: HYDROCORTISONE SOD SUCC/PF 100 MG/2 ML VIAL. IV SCH (05:24)
[2016-05-18] MEDS: MEROPENEM 1 GM in IV NORMAL SALINE 100ML 100 ML IV SCH (05:25)
[2016-05-18] MEDS: METOPROLOL TARTRATE 5 MG/5 ML VIAL. IVP SCH ×2 (05:25→11:46)
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
[2016-05-18] MEDS ORDERED: ALBUMIN HUMAN 5% 250 ML IV ONE ×2 (06:30→11:15)
[2016-05-18 06:33] LABS: ALBUMIN 1.6 g/dL (3.4-5.0); ALBUMIN/GLOBULIN RATIO 1.1 (1.0-1.7); CALCIUM 6.1 mg/dL (8.5-10.1); CREATININE 0.7 mg/dL (0.7-1.3); GFR 128.3; MAGNESIUM 2.1 mg/dL (1.8-2.4); TOTAL BILIRUBIN 0.7 mg/dL (0.2-1.0); TOTAL PROTEIN 3.1 g/dL (6.4-8.2)
[2016-05-18 06:40] LABS: POTASSIUM 4.2 mmol/L (3.5-5.1)
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
[2016-05-18 08:05] LABS: BASO # 0.6 x10^3/uL (0.0-0.2); BASO % 1 % (0-3); EOS % 2 % (0-3); HEMATOCRIT 37.4 % (39.0-53.0); HEMOGLOBIN 11.7 g/dL (13.0-17.5); LYMPH # 9.4 x10^3/uL (1.0-4.8); LYMPH % 19 % (24-48); MEAN CORPUSCULAR HEMOGLOBIN 29 pg (25-35); MEAN CORPUSCULAR HGB CONC 31 g/dL (31-37); MEAN CORPUSCULAR VOLUME 94 fL (79-100); MONO % 3 % (0-9); NEUT % 75 % (31-73); RED BLOOD COUNT 3.99 x10^6/uL (4.30-5.70); RED CELL DISTRIBUTION WIDTH 15.3 % (11.5-14.5)
[2016-05-18 08:07] LABS: WHITE BLOOD COUNT 50.1 x10^3/uL (4.0-11.0)
[2016-05-18 08:17] LABS: PROCALCITONIN 44.2 ng/mL (0.00-0.10)
[2016-05-18 08:27] LABS: BODY TEMP ABG 87.1 DEG; CORRECTED PCO2 ABG 26 mmHg; CORRECTED PH ABG 7.15; CORRECTED PO2 ABG 41 mmHg; HCO3 ABG 10 mmol/L (21-28); PCO2 ABG 34 mmHg (35-46); PO2 ABG 63 mmHg (85-108); SAT O2 ABG 89 % (92-99)
[2016-05-18] MEDS: MICAFUNGIN 100 MG in IV DEXTROSE 5% 100 ML IV SCH (08:32)
[2016-05-18 08:40] LABS: FIO2 ABG 50; PH ABG 7.07 (7.35-7.45)
--- NOTE | 2016-05-18 09:55 | PDOC ---
Infectious Disease Note Subjective Subjective Unresponsive, sedated Hypothermic, on Shay hugger Hypotensive on 4 pressors, max Intubated. FiO2 80% CRRT Bicarb gtt Soft stools. ROS ROS Unobtainable Vital Sign Vital Signs Vital Signs Date Time Temp Pulse Resp B/P Pulse Ox O2 Delivery O2 Flow Rate FiO2 05/18/16 08:20 94 Ventilator 05/18/16 06:00 87.6 95 22 74/62 87.6 05/17/16 08:00 2.0 Physical Exam PHYSICAL EXAM GENERAL: Intubated, CRRT HEENT: Pupils dilated, fixed. ETT. OGT LUNGS: Clear anteriorly HEART: S1 and S2 ABD: Distended, firm, absent BS : Street EXT: No gross edema. SECURITY TESTER: Unresponsive verbal & tactile stimuli. on sedation. no gag response SKIN: Mottling RIJ/HDC. (05/17). clean Right femoral line. clean Labs Lab Laboratory Tests Test 05/17/16 09:55 05/17/16 11:45 05/17/16 12:40 05/17/16 14:30 Sodium Level 131mmol/L (136-145) Potassium Level 5.1mmol/L (3.5-5.1) Chloride Level 99mmol/L (98-107) Carbon Dioxide Level 16mmol/L (21-32) Anion Gap 16 (6-14) Blood Urea Nitrogen 27mg/dL (8-26) Creatinine 0.8mg/dL (0.7-1.3) Estimated GFR (Cockcroft-Gault) 110.0 Glucose Level 398mg/dL (70-99) Lactic Acid Level 3.0mmol/L (0.4-2.0) 2.2mmol/L (0.4-2.0) Calcium Level 8.1mg/dL (8.5-10.1) Magnesium Level 2.3mg/dL (1.8-2.4) Random Tobramycin Level 3.4mcg/mL O2 Saturation 97% (92-99) Arterial Blood pH 7.18 (7.35-7.45) Arterial Blood pCO2 at Patient Temp 35mmHg (35-46) Arterial Blood pO2 at Patient Temp 107mmHg (85-108) Arterial Blood HCO3 13mmol/L (21-28) Arterial Blood Base Excess -14mmol/L (-3-3) FiO2 50 White Blood Count 30.8x10^3/uL (4.0-11.0) Red Blood Count 5.88x10^6/uL (4.30-5.70) Hemoglobin 17.5g/dL (13.0-17.5) Hematocrit 53.8% (39.0-53.0) Mean Corpuscular Volume 91fL (79-100) Mean Corpuscular Hemoglobin 30pg (25-35) Mean Corpuscular Hemoglobin Concent 33g/dL (31-37) Red Cell Distribution Width 14.9% (11.5-14.5) Platelet Count 367x10^3/uL (140-400) Prothrombin Time 16.3SEC (11.7-14.0) Prothromb Time International Ratio 1.4 (0.8-1.1) Test 05/17/16 22:00 05/18/16 06:00 05/18/16 08:00 White Blood Count 43.3x10^3/uL (4.0-11.0) 50.1x10^3/uL (4.0-11.0) Red Blood Count 5.51x10^6/uL (4.30-5.70) 3.99x10^6/uL (4.30-5.70) Hemoglobin 16.4g/dL (13.0-17.5) 11.7g/dL (13.0-17.5) Hematocrit 51.6% (39.0-53.0) 37.4% (39.0-53.0) Mean Corpuscular Volume 94fL (79-100) 94fL (79-100) Mean Corpuscular Hemoglobin 30pg (25-35) 29pg (25-35) Mean Corpuscular Hemoglobin Concent 32g/dL (31-37) 31g/dL (31-37) Red Cell Distribution Width 15.5% (11.5-14.5) 15.3% (11.5-14.5) Platelet Count 54x10^3/uL (140-400) 23x10^3/uL (140-400) Neutrophils (%) (Auto) 73% (31-73) 75% (31-73) Lymphocytes (%) (Auto) 17% (24-48) 19% (24-48) Monocytes (%) (Auto) 8% (0-9) 3% (0-9) Eosinophils (%) (Auto) 1% (0-3) 2% (0-3) Basophils (%) (Auto) 1% (0-3) 1% (0-3) Neutrophils # (Auto) 31.7x10^3uL (1.8-7.7) 37.7x10^3uL (1.8-7.7) Lymphocytes # (Auto) 7.5x10^3/uL (1.0-4.8) 9.4x10^3/uL (1.0-4.8) Monocytes # (Auto) 3.4x10^3/uL (0.0-1.1) 1.2x10^3/uL (0.0-1.1) Eosinophils # (Auto) 0.3x10^3/uL (0.0-0.7) 1.2x10^3/uL (0.0-0.7) Basophils # (Auto) 0.3x10^3/uL (0.0-0.2) 0.6x10^3/uL (0.0-0.2) Segmented Neutrophils % 34% (35-66) Band Neutrophils % 25% (0-9) Lymphocytes % 10% (24-48) Monocytes % 13% (0-10) Metamyelocytes % 10% (0-0) Myelocytes % 8% (0-0) Smudge Cells Present Toxic Granulation Slight Toxic Vacuolation Slight Platelet Estimate Decreased (ADEQUATE) Polychromasia Slight Navneet Cells Few Crenated Cell Present Sodium Level 138mmol/L (136-145) 140mmol/L (136-145) Potassium Level 5.2mmol/L (3.5-5.1) 4.2mmol/L (3.5-5.1) Chloride Level 108mmol/L (98-107) 109mmol/L (98-107) Carbon Dioxide Level 12mmol/L (21-32) 13mmol/L (21-32) Anion Gap 18 (6-14) 18 (6-14) Blood Urea Nitrogen 24mg/dL (8-26) 14mg/dL (8-26) Creatinine 1.0mg/dL (0.7-1.3) 0.7mg/dL (0.7-1.3) Estimated GFR (Cockcroft-Gault) 85.0 128.3 Glucose Level 339mg/dL (70-99) 204mg/dL (70-99) Calcium Level 6.6mg/dL (8.5-10.1) 6.1mg/dL (8.5-10.1) Phosphorus Level 4.4mg/dL (2.6-4.7) 4.0mg/dL (2.6-4.7) Magnesium Level 2.2mg/dL (1.8-2.4) 2.1mg/dL (1.8-2.4) Prothrombin Time 37.0SEC (11.7-14.0) Prothromb Time International Ratio 4.0 (0.8-1.1) Heparin Anti-Xa Act, Unfractionated 0.29IU/mL (0.30-0.70) BUN/Creatinine Ratio 20 (6-20) Lactic Acid Level 10.0mmol/L (0.4-2.0) Total Bilirubin 0.7mg/dL (0.2-1.0) Aspartate Amino Transf (AST/SGOT) 195U/L (15-37) Alanine Aminotransferase (ALT/SGPT) 70U/L (16-63) Alkaline Phosphatase 288U/L (46-116) Total Protein 3.1g/dL (6.4-8.2) Albumin 1.6g/dL (3.4-5.0) Albumin/Globulin Ratio 1.1 (1.0-1.7) Procalcitonin 44.20ng/mL (0.00-0.10) O2 Saturation 89% (92-99) Arterial Blood pH 7.07 (7.35-7.45) Arterial Blood pH (Temp corrected) 7.15 Arterial Blood pCO2 at Patient Temp 34mmHg (35-46) Arterial Blood pCO2 (Temp correct) 26mmHg Arterial Blood pO2 at Patient Temp 63mmHg (85-108) Arterial Blood pO2 (Temp corrected) 41mmHg Arterial Blood HCO3 10mmol/L (21-28) Arterial Blood Base Excess -19mmol/L (-3-3) FiO2 50 Micro Sepsis - POA. Hydrocortisone times one UTI - POA street changed in ER Acute Encephalopathy Multiple abx allergies has tolerated Meropenem/Fluconazole ? Developing right infiltrate Objective Assessment Sepsis - POA. -Procalcitonin 44.20 Hypothermia Leukocytosis, trending up -On steroids Hypotension on 4 pressors Lactic acidosis UTI - POA. -Street changed in ER Acute Encephalopathy Multiple abx allergies has tolerated Meropenem/Fluconazole ? Developing right infiltrate Plan Plan of Care Continue Meropenem, tobramycin and Micafungin Continue Daptomycin with h/o MRSA and VRE Monitor temp, labs, cultures CBC in am check stool for c. diff and add Flagyl. D/w Dr. Dinah Bello Critically ill, poor prognosis Await girlfriend's arrival from [place] (decision-maker) Attending Co-Sign The patient was seen and interviewed as well as examined at the bedside. The chart was reviewed. The case was discussed. Agree with the plan of care. FRANCI MOELLER APRN May 18, 2016 09:55 TREASURE BELLO MD May 18, 2016 14:27
[2016-05-18 09:58] LABS: PLATELET COUNT 23 x10^3/uL (140-400)
[2016-05-18] MEDS ORDERED: EPINEPHRINE 1 MG/10 ML DISP.SYRIN. ONE (10:00)
[2016-05-18] MEDS ORDERED: IPRATRPIUM/ALBUTEROL 0.5/2.5MG 3 ML NEBU. NEB ONE (10:15)
--- NOTE | 2016-05-18 11:38 | PDOC ---
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 meq/Potassium Chloride 15 meq/ Miscellaneous Medication 5, 047.5 ml @ 1,000 mls/ hr Q5H3M IV Last administered on 05/18/16 03:03; Start 05/17/16 at 22:00 Sodium Bicarbonate 40 meq/Potassium Chloride 15 meq/ Miscellaneous Medication 5, 047.5 ml @ 1,500 mls/ hr Q3H22M IV Last administered on 05/18/16 06:06; Start 05/17/16 at 20:00 Sodium Bicarbonate/ Potassium Chloride/ Miscellaneous Medication (Prismasol Bgk 0/ 2.5) 5,047.5 ml @ 1,500 mls/ hr Q3H22M IV Last administered on 05/18/16 06: 06; Start 05/17/16 at 20:00 Heparin Sodium (Porcine) 8900 unit 8,900 unit 1X ONCE IV Last administered on 05/17/16 19:53; Start 05/17/16 at 19:30; Stop 05/18/16 at 11:16; Status DC Heparin Sodium/ Dextrose 500 ml @ 0 mls/hr CONT PRN IV SEE I/O RECORD Last administered on 05/17/16 19:54; Start 05/17/16 at 19:30; Stop 05/18/16 at 11:16; Status DC Heparin Sodium (Porcine) 3,350 unit PRN Q6HRS PRN IV FOR UFH LEVEL LESS THAN 0.2; Start 05/17/16 at 19:30; Status Cancel Heparin Sodium (Porcine) 1650 unit 1,650 unit PRN Q6HRS PRN IV FOR UFH LEVEL 0.2 - 0.29 Last administered on 05/18/16 06:50; Start 05/17/16 at 19:30; Stop 05/18/16 at 11:16; Status DC Albumin Human 250 ml @ 62.5 mls/hr 1X ONCE IV Last administered on 05/17/16 21:47; Start 05/17/16 at 22:00; Stop 05/18/16 at 01:59; Status DC Dopamine HCl/ Dextrose 250 ml @ 20.837 mls/ hr CONT PRN IV SEE I/O RECORD Last administered on 05/18/16 11:22; Start 05/17/16 at 23:15 Vancomycin HCl 1 gm/Sodium Chloride 250 ml @ 250 mls/hr 1X ONCE IV Last administered on 05/17/16 23:51; Start 05/18/16 at 00:00; Stop 05/18/16 at 00:59; Status DC Albumin Human 500 ml @ 125 mls/hr 1X ONCE IV Last administered on 05/18/16 01 :08; Start 05/18/16 at 01:30; Stop 05/18/16 at 05:29; Status DC Albumin Human (Plasmanate) 250 ml @ 62.5 mls/hr 1X ONCE IV Last administered on 05/18/16 06:20; Start 05/18/16 at 06:30; Stop 05/18/16 at 10:29; Status DC Tobramycin Sulfate 1 each 1 each 1X ONCE MC ; Start 05/18/16 at 12:00; Stop 05/18 at 12:01 Metronidazole (FLAGYL 500Mmg PREMIX) 100 ml @ 100 mls/hr Q8HRS IV ; Start at 14:00 Albuterol/ Ipratropium 3 ml 3 ml 1X ONCE NEB ; Start 05/18/16 at 10:15; Stop 05/18/16 at 10:16; Status DC Albumin Human (Plasmanate) 250 ml @ 62.5 mls/hr 1X ONCE IV ; Start 05/18/16 at 11:15; Stop 05/18/16 at 15:14 Active Scripts Active Reported Thera M Plus Tablet (Multivits,Ca,Minerals/Iron/FA) 1 Each Tablet 1 Each PO DAILY Lactaid Fast Act (Lactase) 9,000 Unit Tab.chew 3,000 Unit PO PRN PRN Bacid Caplet (Acidoph/L.bulg/Bif.b/S.thermop) 1 Each Tablet 1 Each PO BID Atorvastatin Calcium 40 Mg Tablet 1 Tab PO QHS Aspirin Ec (Aspirin) 81 Mg Tablet.dr 1 Tab PO DAILY Acetaminophen 500 Mg Tablet 650 Mg PO Q6HRS Acetaminophen 500 Mg Tablet 2 Tab PO Q6HRS FENTANYL 75mcg/hr (Fentanyl) 1 Each Patch.td72 1 Patch TP Q3DAYS Diflucan (Fluconazole) 150 Mg Tablet 150 Mg PO DAILY Lidocaine Hcl 5 Ml Jel..ml. 5 Ml MM PRN QID PRN Baclofen 10 Mg Tablet 30 Mg PO QID Hydrocortisone Acetate 28.4 Gm Cream..g. 28.4 Gm TP PRN BID PRN Hydrocodone-Apap 5-325 (Hydrocodone Bit/Acetaminophen) 1 Each Tablet 1 Tab PO PRN Q4-6HRS PRN Celebrex (Celecoxib) 100 Mg Capsule 1 Cap PO DAILY Senna (Sennosides) 8.6 Mg Tablet 8.6 Mg PO QHS Zofran (Ondansetron Hcl) 4 Mg Tablet 1 Tab PO PRN Q4HRS PRN Robitussin Cough-Chest Dm Liq (Guaifenesin/Dextromethorphan) 118 Ml Liquid 10 Ml PO PRN Q4HRS PRN Hydralazine Hcl 10 Mg Tablet 1 Tab PO PRN TID PRN Gabapentin 300 Mg Capsule 900 Mg PO QID Midodrine Hcl 10 Mg Tablet 10 Mg PO PRN Q3HRS PRN Protonix (Pantoprazole Sodium) 20 Mg Tablet.dr 1 Tab PO DAILY Lyrica (Pregabalin) 50 Mg Capsule 1 Cap PO QID Oxybutynin Chloride 5 Mg Tablet 1 Tab PO TID Pilocarpine Hcl 7.5 Mg Tablet 7.5 Mg PO QID Bacid Caplet (Acidoph/L.bulg/Bif.b/S.thermop) 1 Each Tablet 1 Each PO BID Multiple Vitamin (Multivitamin With Minerals) 1 Each Tablet 1 Each PO DAILY Milk Of Magnesia (Magnesium Hydroxide) 2,400 Mg/10 Ml Oral.susp 2,400 Mg PO PRN DAILY PRN Bisacodyl 10 Mg Supp.rect 10 Mg RC QODAY Cyclobenzaprine Hcl 10 Mg Tablet 10 Mg PO QHS Colace (Docusate Sodium) 100 Mg Capsule 100 Mg PO BID Vitamin D (Cholecalciferol (Vitamin D3)) 1,000 Unit Tablet 1,000 Unit PO DAILY Bisacodyl 5 Mg Tablet.dr 10 Mg PO PRN BID PRN Vitals/I & O Vital Sign - Last 24 Hours 05/17/16 05/17/16 05/17/16 05/17/16 12:00 12:00 12:15 12:30 Pulse 136 146 148 Resp 20 20 20 B/P 88/62 74/54 O2 Delivery Ventilator Mechanical Ventilator Ventilator Ventilator 05/17/16 05/17/16 05/17/16 05/17/16 12:45 13:00 13:53 14:00 Pulse 156 158 158 Resp 20 20 20 B/P 96/54 92/68 104/72 O2 Delivery Ventilator Ventilator Ventilator Ventilator 05/17/16 05/17/16 05/17/16 05/17/16 15:00 16:00 16:00 16:07 Pulse 158 158 Resp 20 20 B/P 102/78 74/56 Pulse Ox 95 O2 Delivery Ventilator Ventilator Mechanical Ventilator Ventilator 05/17/16 05/17/16 05/17/16 05/17/16 17:00 17:51 18:00 18:08 Pulse 158 125 158 Resp 20 20 B/P 70/50 86/70 76/66 Pulse Ox 97 O2 Delivery Ventilator Ventilator Ventilator 05/17/16 05/17/16 05/17/16 05/17/16 19:00 20:00 20:00 20:18 Temp 97.4 97.0 97.4 97.0 Pulse 139 139 Resp 20 20 B/P 86/79 70/89 Pulse Ox 97 97 97 O2 Delivery Ventilator Ventilator Mechanical Ventilator Ventilator 05/17/16 05/17/16 05/17/16 05/17/16 21:00 22:00 22:53 23:00 Temp 96.5 96.5 94.2 96.5 96.5 94.2 Pulse 118 99 107 Resp 20 20 20 B/P 71/65 69/65 48/42 Pulse Ox 98 98 98 95 O2 Delivery Ventilator Ventilator Ventilator Ventilator 05/17/16 05/17/16 05/18/16 05/18/16 23:51 23:59 00:00 01:00 Temp 92.0 90.0 92.0 90.0 Pulse 109 107 99 Resp 20 20 B/P 54/50 54/49 51/47 Pulse Ox 93 91 O2 Delivery Mechanical Ventilator Ventilator Ventilator 05/18/16 05/18/16 05/18/16 05/18/16 01:25 02:00 03:00 03:15 Temp 90.0 89.1 90.0 89.1 Pulse 97 96 Resp 22 B/P 52/48 59/48 Pulse Ox 93 92 92 93 O2 Delivery Ventilator Ventilator Ventilator Ventilator 05/18/16 05/18/16 05/18/16 05/18/16 04:00 04:00 05:00 05:25 Temp 88.8 87.9 88.8 87.9 Pulse 95 98 97 Resp 22 B/P 55/51 69/59 68/61 Pulse Ox 94 96 O2 Delivery Ventilator Mechanical Ventilator Ventilator 05/18/16 05/18/16 05/18/16 05/18/16 05:43 06:00 07:56 08:20 Temp 87.6 87.6 Pulse 95 Resp 22 B/P 74/62 Pulse Ox 94 96 94 94 O2 Delivery Ventilator Ventilator Ventilator Ventilator Intake and Output 05/17/16 05/17/16 05/18/16 15:00 23:00 07:00 Intake Total 1000 ml Output Total 160 ml 95 ml 0 ml Balance 840 ml -95 ml 0 ml Nutrition Consultation Dietary Evaluation: Recommendations by RD: Increase Calorie Intake Comments: Rec. TF's when hemodynamically stable Left recommendation with nursing Novasource Renal, goal rate 45 ml/hr start at 15 ml/hr, increase by 15 ml/hr q8h to goal rate flushes PRN while on IVF's Rec. a daily MVT and 500 mg Vitamin C/day to aide with wound healing Expected Outcomes/Goals: TF initiation meet 75% estimated nutrition needs Malnutrition Findings: Reduced Production Officer Strength: N/A Reduced Production Officer Strength (Non-Sev: N/A Malnutrition related to morbid: No Weight Status: Obese ROBBY BUSH III DO May 18, 2016 11:38
[2016-05-18] MEDS: DAPTOMYCIN IV SCH (11:44)
--- NOTE | 2016-05-18 11:55 | PDOC ---
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 Pulse 158 125 158 Resp 20 20 B/P 70/50 86/70 76/66 Pulse Ox 97 O2 Delivery Ventilator Ventilator Ventilator 05/17/16 05/17/16 05/17/16 05/17/16 19:00 20:00 20:00 20:18 Temp 97.4 97.0 97.4 97.0 Pulse 139 139 Resp 20 20 B/P 86/79 70/89 Pulse Ox 97 97 97 O2 Delivery Ventilator Ventilator Mechanical Ventilator Ventilator 05/17/16 05/17/16 05/17/16 05/17/16 21:00 22:00 22:53 23:00 Temp 96.5 96.5 94.2 96.5 96.5 94.2 Pulse 118 99 107 Resp 20 20 20 B/P 71/65 69/65 48/42 Pulse Ox 98 98 98 95 O2 Delivery Ventilator Ventilator Ventilator Ventilator 05/17/16 05/17/16 05/18/16 05/18/16 23:51 23:59 00:00 01:00 Temp 92.0 90.0 92.0 90.0 Pulse 109 107 99 Resp 20 B/P 54/50 54/49 51/47 Pulse Ox 93 91 O2 Delivery Mechanical Ventilator Ventilator Ventilator 05/18/16 05/18/16 05/18/16 05/18/16 01:25 02:00 03:00 03:15 Temp 90.0 89.1 90.0 89.1 Pulse 97 96 Resp 22 B/P 52/48 59/48 Pulse Ox 93 92 92 93 O2 Delivery Ventilator Ventilator Ventilator Ventilator 05/18/16 05/18/16 05/18/16 05/18/16 04:00 04:00 05:00 05:25 Temp 88.8 87.9 88.8 87.9 Pulse 95 98 97 Resp B/P 55/51 69/59 68/61 Pulse Ox 94 96 O2 Delivery Ventilator Mechanical Ventilator Ventilator 05/18/16 05/18/16 05/18/16 05/18/16 05:43 06:00 07:56 08:20 Temp 87.6 87.6 Pulse 95 Resp 22 B/P 74/62 Pulse Ox 94 96 94 94 O2 Delivery Ventilator Ventilator Ventilator Ventilator 05/18/16 05/18/16 10:15 11:45 Pulse Ox 94 94 O2 Delivery Ventilator Ventilator Intake and Output 05/17/16 05/17/16 05/18/16 15:00 23:00 07:00 Intake Total 1000 ml Output Total 160 ml 95 ml 0 ml Balance 840 ml -95 ml 0 ml Nutrition Consultation Dietary Evaluation: Recommendations by RD: Increase Calorie Intake Comments: Rec. TF's when hemodynamically stable Left recommendation with nursing Novasource Renal, goal rate 45 ml/hr start at 15 ml/hr, increase by 15 ml/hr q8h to goal rate flushes PRN while on IVF's Rec. a daily MVT and 500 mg Vitamin C/day to aide with wound healing Expected Outcomes/Goals: TF initiation meet 75% estimated nutrition needs Malnutrition Findings: Reduced Software Development Coordinator Strength: N/A Reduced Software Development Coordinator Strength (Non-Sev: N/A Malnutrition related to morbid: No Weight Status: Obese ELAYNE MCCALL MD May 18, 2016 11:55
[2016-05-18] MEDS ORDERED: TOBRAMYCIN RANDOM LEVEL. MC ONE (12:00)
--- NOTE | 2016-05-18 12:24 | RAD ---
Examination: Single portable chest History: History of increased peak pressures comparison: 05/17/2016 Findings: The ET tube, right-sided internal jugular line, right-sided dialysis catheter are unchanged. Low lung volumes and technique accentuates heart size and pulmonary vascularity. Mild cardiomegaly. Mild bilateral interstitial and airspace opacities likely mild congestive changes. Impression: 1. Interval removal of feeding tube. Otherwise lines and tubes unchanged. Bilateral congestive changes similar to prior exam.
--- NOTE | 2016-05-18 13:37 | PDOC ---
PROGRESS NOTES Subjective Subjective SEEN IN FOLLOW UP OF ARF IN SETTING OF SEPSIS Objective Objective Vital Signs Date Time Temp Pulse Resp B/P Pulse Ox O2 Delivery O2 Flow Rate FiO2 05/18/16 11:45 94 Ventilator 05/18/16 06:00 87.6 95 22 74/62 87.6 05/17/16 08:00 2.0 Intake and Output 05/18/16 07:00 Intake Total 1000 ml Output Total 255 ml Balance 745 ml Intake IV Total 1000 ml Output Urine Total 255 ml Physical Exam Abdomen: Other (DISTENDED) Heart: Other (HYPOTENSIVE AND ON MULTIPLE VASOPRESSORS) Extremities: Other (COLD AND MOTTLED) General: Other (NO SEDATION) Lungs: Clear to auscultation, Normal air movement, Other (ON VENT) Neuro: Other (NO SEDATION AND UNRESPONSIVE) Diagnosis RENAL FAILURE: Acute (Acute tubular necrosis) Assessment Assessment Problems Medical Problems: (1) HCAP (healthcare-associated pneumonia) Status: Acute (2) Septic shock Status: Acute (3) Urinary tract infection Status: Acute Plan Plan of Care HE IS MORIBUND. HE IS ON MAX VASOPRESSOR AND ANTIMICROBIAL SUPPORT WITH RISING WBC AND PROGRESSIVE RISE IN LACTIC ACIDOSIS. THIS IS IN SPITE OF CRRT WHICH IS NOW OFF DUE TO MECHANICAL ISSUES. HE IS IN NEED OF NEW HD CATHETER TO CONT CRRT BUT IT HAS NOT ALLOWED FOR IMPROVEMENT. WILL NOT REPLACE CATHETER. ANTICIPATE SOON. HAVE SPOKEN WITH HIS AUNT AND UNCLE. HAVE ATTEMPTED TO CONTACT HIS GIRLFRIEND IN [place] BUT UNAVAILABLE. HIS PARENTS HAVE DEFERRED DECISIONS TO HER. Comment Review of Relevant I have reviewed the following items kandy (where applicable) has been applied. Labs Laboratory Tests Test 05/17/16 00:26 05/17/16 01:46 05/17/16 03:00 05/17/16 03:50 White Blood Count 16.7x10^3/uL (4.0-11.0) Red Blood Count 4.88x10^6/uL (4.30-5.70) Hemoglobin 14.6g/dL (13.0-17.5) Hematocrit 44.0% (39.0-53.0) Mean Corpuscular Volume 90fL (79-100) Mean Corpuscular Hemoglobin 30pg (25-35) Mean Corpuscular Hemoglobin Concent 33g/dL (31-37) Red Cell Distribution Width 14.9% (11.5-14.5) Platelet Count 273x10^3/uL (140-400) Neutrophils (%) (Auto) 86% (31-73) Lymphocytes (%) (Auto) 6% (24-48) Monocytes (%) (Auto) 9% (0-9) Eosinophils (%) (Auto) 0% (0-3) Basophils (%) (Auto) 0% (0-3) Neutrophils # (Auto) 14.3x10^3uL (1.8-7.7) Lymphocytes # (Auto) 0.9x10^3/uL (1.0-4.8) Monocytes # (Auto) 1.4x10^3/uL (0.0-1.1) Eosinophils # (Auto) 0.0x10^3/uL (0.0-0.7) Basophils # (Auto) 0.0x10^3/uL (0.0-0.2) Segmented Neutrophils % 50% (35-66) Band Neutrophils % 33% (0-9) Lymphocytes % 7% (24-48) Monocytes % 9% (0-10) Metamyelocytes % 1% (0-0) Toxic Granulation Slight Platelet Estimate Adequate (ADEQUATE) Prothrombin Time 16.9SEC (11.7-14.0) Prothromb Time International Ratio 1.5 (0.8-1.1) Activated Partial Thromboplast Time 36SEC (24-38) Sodium Level 128mmol/L (136-145) Potassium Level 4.3mmol/L (3.5-5.1) Chloride Level 95mmol/L (98-107) Carbon Dioxide Level 22mmol/L (21-32) Anion Gap 11 (6-14) Blood Urea Nitrogen 28mg/dL (8-26) Creatinine 1.0mg/dL (0.7-1.3) Estimated GFR (Cockcroft-Gault) 85.0 BUN/Creatinine Ratio 28 (6-20) Glucose Level 390mg/dL (70-99) Lactic Acid Level 2.2mmol/L (0.4-2.0) Calcium Level 8.4mg/dL (8.5-10.1) Total Bilirubin 1.0mg/dL (0.2-1.0) Aspartate Amino Transf (AST/SGOT) 15U/L (15-37) Alanine Aminotransferase (ALT/SGPT) 14U/L (16-63) Alkaline Phosphatase 121U/L (46-116) Total Protein 6.0g/dL (6.4-8.2) Albumin 2.0g/dL (3.4-5.0) Albumin/Globulin Ratio 0.5 (1.0-1.7) Urine Collection Type Unknown Urine Color Katerina Urine Clarity Cloudy Urine pH 5.0 Urine Specific [place] 1.025 Urine Protein 30mg/dL (NEG-TRACE) Urine Glucose (UA) Negativemg/dL (NEG) Urine Ketones (Stick) Tracemg/dL (NEG) Urine Blood Negative (NEG) Urine Nitrite Positive (NEG) Urine Bilirubin Moderate (NEG) Urine Urobilinogen Dipstick 1.0mg/dL (0.2 mg/dL) Urine Leukocyte Esterase Small (NEG) Urine RBC 0/HPF (0-2) Urine WBC 5-10/HPF (0-4) Urine Squamous Epithelial Cells Few/LPF Urine Amorphous Sediment Present/HPF Urine Bacteria Many/HPF (0-FEW) Urine Hyaline Casts Many/HPF Urine Mucus Marked/LPF Urine Yeast Present/HPF Influenza Type A Antigen Negative (NEGATIVE) Influenza Type B Antigen Negative (NEGATIVE) Nasal Screen MRSA (PCR) Positive (Negative) Test 05/17/16 04:55 05/17/16 07:16 05/17/16 09:55 05/17/16 11:45 Lactic Acid Level 2.9mmol/L (0.4-2.0) 3.0mmol/L (0.4-2.0) O2 Saturation 95% (92-99) 97% (92-99) Arterial Blood pH 7.28 (7.35-7.45) 7.18 (7.35-7.45) Arterial Blood pCO2 at Patient Temp 33mmHg (35-46) 35mmHg (35-46) Arterial Blood pO2 at Patient Temp 81mmHg (85-108) 107mmHg (85-108) Arterial Blood HCO3 15mmol/L (21-28) 13mmol/L (21-28) Arterial Blood Base Excess -11mmol/L (-3-3) -14mmol/L (-3-3) FiO2 28 50 Sodium Level 131mmol/L (136-145) Potassium Level 5.1mmol/L (3.5-5.1) Chloride Level 99mmol/L (98-107) Carbon Dioxide Level 16mmol/L (21-32) Anion Gap 16 (6-14) Blood Urea Nitrogen 27mg/dL (8-26) Creatinine 0.8mg/dL (0.7-1.3) Estimated GFR (Cockcroft-Gault) 110.0 Glucose Level 398mg/dL (70-99) Calcium Level 8.1mg/dL (8.5-10.1) Magnesium Level 2.3mg/dL (1.8-2.4) Random Tobramycin Level 3.4mcg/mL Test 05/17/16 12:40 05/17/16 14:30 05/17/16 22:00 05/18/16 06:00 White Blood Count 30.8x10^3/uL (4.0-11.0) 43.3x10^3/uL (4.0-11.0) Red Blood Count 5.88x10^6/uL (4.30-5.70) 5.51x10^6/uL (4.30-5.70) Hemoglobin 17.5g/dL (13.0-17.5) 16.4g/dL (13.0-17.5) Hematocrit 53.8% (39.0-53.0) 51.6% (39.0-53.0) Mean Corpuscular Volume 91fL (79-100) 94fL (79-100) Mean Corpuscular Hemoglobin 30pg (25-35) 30pg (25-35) Mean Corpuscular Hemoglobin Concent 33g/dL (31-37) 32g/dL (31-37) Red Cell Distribution Width 14.9% (11.5-14.5) 15.5% (11.5-14.5) Platelet Count 367x10^3/uL (140-400) 54x10^3/uL (140-400) Prothrombin Time 16.3SEC (11.7-14.0) 37.0SEC (11.7-14.0) Prothromb Time International Ratio 1.4 (0.8-1.1) 4.0 (0.8-1.1) Lactic Acid Level 2.2mmol/L (0.4-2.0) 10.0mmol/L (0.4-2.0) Neutrophils (%) (Auto) 73% (31-73) Lymphocytes (%) (Auto) 17% (24-48) Monocytes (%) (Auto) 8% (0-9) Eosinophils (%) (Auto) 1% (0-3) Basophils (%) (Auto) 1% (0-3) Neutrophils # (Auto) 31.7x10^3uL (1.8-7.7) Lymphocytes # (Auto) 7.5x10^3/uL (1.0-4.8) Monocytes # (Auto) 3.4x10^3/uL (0.0-1.1) Eosinophils # (Auto) 0.3x10^3/uL (0.0-0.7) Basophils # (Auto) 0.3x10^3/uL (0.0-0.2) Segmented Neutrophils % 34% (35-66) Band Neutrophils % 25% (0-9) Lymphocytes % 10% (24-48) Monocytes % 13% (0-10) Metamyelocytes % 10% (0-0) Myelocytes % 8% (0-0) Smudge Cells Present Toxic Granulation Slight Toxic Vacuolation Slight Platelet Estimate Decreased (ADEQUATE) Polychromasia Slight Navneet Cells Few Crenated Cell Present Sodium Level 138mmol/L (136-145) 140mmol/L (136-145) Potassium Level 5.2mmol/L (3.5-5.1) 4.2mmol/L (3.5-5.1) Chloride Level 108mmol/L (98-107) 109mmol/L (98-107) Carbon Dioxide Level 12mmol/L (21-32) 13mmol/L (21-32) Anion Gap 18 (6-14) 18 (6-14) Blood Urea Nitrogen 24mg/dL (8-26) 14mg/dL (8-26) Creatinine 1.0mg/dL (0.7-1.3) 0.7mg/dL (0.7-1.3) Estimated GFR (Cockcroft-Gault) 85.0 128.3 Glucose Level 339mg/dL (70-99) 204mg/dL (70-99) Calcium Level 6.6mg/dL (8.5-10.1) 6.1mg/dL (8.5-10.1) Phosphorus Level 4.4mg/dL (2.6-4.7) 4.0mg/dL (2.6-4.7) Magnesium Level 2.2mg/dL (1.8-2.4) 2.1mg/dL (1.8-2.4) Heparin Anti-Xa Act, Unfractionated 0.29IU/mL (0.30-0.70) BUN/Creatinine Ratio 20 (6-20) Total Bilirubin 0.7mg/dL (0.2-1.0) Aspartate Amino Transf (AST/SGOT) 195U/L (15-37) Alanine Aminotransferase (ALT/SGPT) 70U/L (16-63) Alkaline Phosphatase 288U/L (46-116) Total Protein 3.1g/dL (6.4-8.2) Albumin 1.6g/dL (3.4-5.0) Albumin/Globulin Ratio 1.1 (1.0-1.7) Procalcitonin 44.20ng/mL (0.00-0.10) Test 05/18/16 08:00 White Blood Count 50.1x10^3/uL (4.0-11.0) Red Blood Count 3.99x10^6/uL (4.30-5.70) Hemoglobin 11.7g/dL (13.0-17.5) Hematocrit 37.4% (39.0-53.0) Mean Corpuscular Volume 94fL (79-100) Mean Corpuscular Hemoglobin 29pg (25-35) Mean Corpuscular Hemoglobin Concent 31g/dL (31-37) Red Cell Distribution Width 15.3% (11.5-14.5) Platelet Count 23x10^3/uL (140-400) Neutrophils (%) (Auto) 75% (31-73) Lymphocytes (%) (Auto) 19% (24-48) Monocytes (%) (Auto) 3% (0-9) Eosinophils (%) (Auto) 2% (0-3) Basophils (%) (Auto) 1% (0-3) Neutrophils # (Auto) 37.7x10^3uL (1.8-7.7) Lymphocytes # (Auto) 9.4x10^3/uL (1.0-4.8) Monocytes # (Auto) 1.2x10^3/uL (0.0-1.1) Eosinophils # (Auto) 1.2x10^3/uL (0.0-0.7) Basophils # (Auto) 0.6x10^3/uL (0.0-0.2) O2 Saturation 89% (92-99) Arterial Blood pH 7.07 (7.35-7.45) Arterial Blood pH (Temp corrected) 7.15 Arterial Blood pCO2 at Patient Temp 34mmHg (35-46) Arterial Blood pCO2 (Temp correct) 26mmHg Arterial Blood pO2 at Patient Temp 63mmHg (85-108) Arterial Blood pO2 (Temp corrected) 41mmHg Arterial Blood HCO3 10mmol/L (21-28) Arterial Blood Base Excess -19mmol/L (-3-3) FiO2 50 Laboratory Tests Test 05/17/16 14:30 05/17/16 22:00 05/18/16 06:00 05/18/16 08:00 Lactic Acid Level 2.2mmol/L (0.4-2.0) 10.0mmol/L (0.4-2.0) White Blood Count 43.3x10^3/uL (4.0-11.0) 50.1x10^3/uL (4.0-11.0) Red Blood Count 5.51x10^6/uL (4.30-5.70) 3.99x10^6/uL (4.30-5.70) Hemoglobin 16.4g/dL (13.0-17.5) 11.7g/dL (13.0-17.5) Hematocrit 51.6% (39.0-53.0) 37.4% (39.0-53.0) Mean Corpuscular Volume 94fL (79-100) 94fL (79-100) Mean Corpuscular Hemoglobin 30pg (25-35) 29pg (25-35) Mean Corpuscular Hemoglobin Concent 32g/dL (31-37) 31g/dL (31-37) Red Cell Distribution Width 15.5% (11.5-14.5) 15.3% (11.5-14.5) Platelet Count 54x10^3/uL (140-400) 23x10^3/uL (140-400) Neutrophils (%) (Auto) 73% (31-73) 75% (31-73) Lymphocytes (%) (Auto) 17% (24-48) 19% (24-48) Monocytes (%) (Auto) 8% (0-9) 3% (0-9) Eosinophils (%) (Auto) 1% (0-3) 2% (0-3) Basophils (%) (Auto) 1% (0-3) 1% (0-3) Neutrophils # (Auto) 31.7x10^3uL (1.8-7.7) 37.7x10^3uL (1.8-7.7) Lymphocytes # (Auto) 7.5x10^3/uL (1.0-4.8) 9.4x10^3/uL (1.0-4.8) Monocytes # (Auto) 3.4x10^3/uL (0.0-1.1) 1.2x10^3/uL (0.0-1.1) Eosinophils # (Auto) 0.3x10^3/uL (0.0-0.7) 1.2x10^3/uL (0.0-0.7) Basophils # (Auto) 0.3x10^3/uL (0.0-0.2) 0.6x10^3/uL (0.0-0.2) Segmented Neutrophils % 34% (35-66) Band Neutrophils % 25% (0-9) Lymphocytes % 10% (24-48) Monocytes % 13% (0-10) Metamyelocytes % 10% (0-0) Myelocytes % 8% (0-0) Smudge Cells Present Toxic Granulation Slight Toxic Vacuolation Slight Platelet Estimate Decreased (ADEQUATE) Polychromasia Slight Navneet Cells Few Crenated Cell Present Sodium Level 138mmol/L (136-145) 140mmol/L (136-145) Potassium Level 5.2mmol/L (3.5-5.1) 4.2mmol/L (3.5-5.1) Chloride Level 108mmol/L (98-107) 109mmol/L (98-107) Carbon Dioxide Level 12mmol/L (21-32) 13mmol/L (21-32) Anion Gap 18 (6-14) 18 (6-14) Blood Urea Nitrogen 24mg/dL (8-26) 14mg/dL (8-26) Creatinine 1.0mg/dL (0.7-1.3) 0.7mg/dL (0.7-1.3) Estimated GFR (Cockcroft-Gault) 85.0 128.3 Glucose Level 339mg/dL (70-99) 204mg/dL (70-99) Calcium Level 6.6mg/dL (8.5-10.1) 6.1mg/dL (8.5-10.1) Phosphorus Level 4.4mg/dL (2.6-4.7) 4.0mg/dL (2.6-4.7) Magnesium Level 2.2mg/dL (1.8-2.4) 2.1mg/dL (1.8-2.4) Prothrombin Time 37.0SEC (11.7-14.0) Prothromb Time International Ratio 4.0 (0.8-1.1) Heparin Anti-Xa Act, Unfractionated 0.29IU/mL (0.30-0.70) BUN/Creatinine Ratio 20 (6-20) Total Bilirubin 0.7mg/dL (0.2-1.0) Aspartate Amino Transf (AST/SGOT) 195U/L (15-37) Alanine Aminotransferase (ALT/SGPT) 70U/L (16-63) Alkaline Phosphatase 288U/L (46-116) Total Protein 3.1g/dL (6.4-8.2) Albumin 1.6g/dL (3.4-5.0) Albumin/Globulin Ratio 1.1 (1.0-1.7) Procalcitonin 44.20ng/mL (0.00-0.10) O2 Saturation 89% (92-99) Arterial Blood pH 7.07 (7.35-7.45) Arterial Blood pH (Temp corrected) 7.15 Arterial Blood pCO2 at Patient Temp 34mmHg (35-46) Arterial Blood pCO2 (Temp correct) 26mmHg Arterial Blood pO2 at Patient Temp 63mmHg (85-108) Arterial Blood pO2 (Temp corrected) 41mmHg Arterial Blood HCO3 10mmol/L (21-28) Arterial Blood Base Excess -19mmol/L (-3-3) FiO2 50 Microbiology 05/17/16 Blood Culture - Preliminary, Resulted NO GROWTH AFTER 1 DAY Medications Current Medications Acetaminophen (Tylenol) 650 mg STK-MED ONCE .ROUTE ; Start 05/17/16 at 00:09; Stop 05/17/16 at 00:10; Status DC Hydrocortisone Sodium Succinate (Solu-Cortef) 100 mg 1X ONCE IV Last administered on 05/17/16 02:06; Start 05/17/16 at 01:00; Stop 05/17/16 at 01:01; Status DC Sodium Chloride 10 ml 10 ml QSHIFT PRN IV AFTER MEDS AND BLOOD DRAWS; Start 05/17/16 at 00:30 Sodium Chloride (Iv Sodium Chloride 0.9% 1000ml Bag) 1,000 ml @ 750 mls/hr Q1H20M IV Last administered on 05/17/16 01:40; Start 05/17/16 at 00:17; Stop 05/17/16 at 04:16; Status DC Vancomycin HCl 1 each 1 each PRN DAILY PRN MC PHARMACY TO DOSE Last administered on 05/17/16 03:33; Start 05/17/16 at 00:30; Stop 05/17/16 at 08:24; Status DC Levofloxacin/ Dextrose 150 ml @ 100 mls/hr 1X ONCE IV Last administered on 00:54; Start 05/17/16 at 00:30; Stop 05/17/16 at 01:59; Status DC Vancomycin HCl 2 gm/Sodium Chloride 500 ml @ 250 mls/hr 1X ONCE IV Last administered on 05/17/16 01:43; Start 05/17/16 at 01:00; Stop 05/17/16 at 02:59; Status DC Norepinephrine Bitartrate/Sodium Chloride (Levophed Vial/ Iv Sodium Chloride 0.9 % 250ml) 258 ml @ 0 mls/hr CONT PRN IV PER PROTOCOL Last administered on 02:34; Start 05/17/16 at 01:45 Ondansetron HCl (Zofran) 4 mg PRN Q8HRS PRN IV NAUSEA/VOMITING; Start 05/17/16 at 01:45; Stop 05/18/16 at 01:44; Status DC Tobramycin Sulfate 1 each 1 each PRN DAILY PRN MC DOSING PER PHARMACY Last administered on 05/17/16 13:33; Start 05/17/16 at 02:00 Tobramycin Sulfate 450 mg/ Sodium Chloride 111.25 ml @ 111.25 mls/hr Q24H IV Last administered on 05/18/16 03:00; Start 05/17/16 at 03:00 Vancomycin HCl/ Sodium Chloride (Iv Sodium Chloride 0.9% 500ml Bag) 500 ml @ 250 mls/hr Q8H IV ; Start 05/17/16 at 10:00; Stop 05/17/16 at 10:00; Status DC Vancomycin HCl 1 each 1 each 1X ONCE MC ; Start 05/18/16 at 01:30; Stop 05/18/16 at 01:30; Status DC Sodium Chloride (Iv Sodium Chloride 0.9% 1000ml Bag) 1,000 ml @ 125 mls/hr Q8H IV Last administered on 05/18/16 04:57; Start 05/17/16 at 04:15; Stop 05/18/16 at 11:16; Status DC Info (Do NOT chart on this placeholder) 1 each PRN DAILY PRN MC PT UNABLE TO RESPOND; Start 05/17/16 at 04:45 Pneumococcal Polyvalent Vaccine (Do NOT chart on this placeholder) 1 each PRN DAILY PRN MC UNABLE TO RESPOND; Start 05/17/16 at 04:45 Haloperidol Lactate (Haldol) 5 mg PRN Q4HRS PRN IV AGITATION Last administered on 05/17/16 05:47; Start 05/17/16 at 05:45 Lorazepam (Ativan) 2 mg PRN Q4HRS PRN IV SEVERE ANXIETY / AGITATION Last administered on 05/17/16 06:48; Start 05/17/16 at 05:45 Lorazepam (Ativan) 1 mg PRN Q4HRS PRN IV MODERATE ANXIETY / AGITATION; Start at 05:45 Morphine Sulfate 2 mg PRN Q4HRS PRN IV MODERATE PAIN; Start 05/17/16 at 05:45 Morphine Sulfate 4 mg 4 mg PRN Q4HRS PRN IV SEVERE PAIN; Start 05/17/16 at 05:45 Meropenem 1 gm/ Sodium Chloride 100 ml @ 200 mls/hr Q8HRS IV Last administered on 05/18/16 05:25; Start 05/17/16 at 09:00 Micafungin Sodium 100 mg/Dextrose 100 ml @ 100 mls/hr Q24H IV Last administered on 05/18/16 08:32; Start 05/17/16 at 09:00 Daptomycin/Sodium Chloride (Cubicin/Iv Sodium Chloride 0.9% 50ml) 50 ml @ 100 mls/hr Q24H IV ; Start 05/17/16 at 09:00; Stop 05/17/16 at 09:09; Status DC Succinylcholine Chloride (Anectine) 200 mg STK-MED ONCE .ROUTE ; Start 05/17/16 at 08:33; Stop 05/17/16 at 08:34; Status DC Etomidate (Amidate) 20 mg STK-MED ONCE IV ; Start 05/17/16 at 08:34; Stop at 08:35; Status DC Etomidate (Amidate) 20 mg 1X ONCE IV Last administered on 05/17/16 08:45; Start 05/17/16 at 08:45; Stop 05/17/16 at 08:46; Status DC Succinylcholine Chloride 100 mg 100 mg 1X ONCE IV Last administered on 08:45; Start 05/17/16 at 08:45; Stop 05/17/16 at 08:46; Status DC Midazolam HCl 100 ml @ 0 mls/hr CONT PRN IV SEE I/O RECORD Last administered on 05/18/16 01:14; Start 05/17/16 at 09:00 Daptomycin/Sodium Chloride (Cubicin/Iv Sodium Chloride 0.9% 50ml) 50 ml @ 100 mls/hr Q24H IV Last administered on 05/18/16 11:44; Start 05/17/16 at 09:30 Acetaminophen (Tylenol) 650 mg PRN Q6HRS PRN [place] MILD PAIN / TEMP Last administered on 05/17/16 09:40; Start 05/17/16 at 09:15 Hydrocortisone Sodium Succinate 100 mg 100 mg Q8HRS IV Last administered on 05/18 05:24; Start 05/17/16 at 11:00 Phenylephrine HCl/ Sodium Chloride (Oneil-Synephrine Inj/Iv Sodium Chloride 0.9% 250ml) 258 ml @ 0 mls/hr CONT PRN IV SEE I/O RECORD Last administered on 03:49; Start 05/17/16 at 11:00 Digoxin (Lanoxin) 500 mcg 1X ONCE IV Last administered on 05/17/16 11:23; Start 05/17/16 at 11:00; Stop 05/17/16 at 11:01; Status DC Metoprolol Tartrate (Lopressor) 5 mg 1X ONCE IVP Last administered on 11:23; Start 05/17/16 at 11:30; Stop 05/17/16 at 11:31; Status DC Metoprolol Tartrate (Lopressor) 5 mg PRN Q6HRS IVP ; Start 05/17/16 at 12:00; Stop 05/17/16 at 12:00; Status DC Metoprolol Tartrate (Lopressor) 5 mg PRN Q6HRS PRN IVP SEE INSTRUCTIONS; Start 05/17/16 at 12:01 Lidocaine/Sodium Bicarbonate (Buffered Lidocaine 1%) 3 ml 1X ONCE IJ Last administered on 05/17/16 12:30; Start 05/17/16 at 12:30; Stop 05/17/16 at 12:31; Status DC Heparin Sodium/ Sodium Chloride 60 unit 1X ONCE IV Last administered on 14:31; Start 05/17/16 at 12:30; Stop 05/17/16 at 12:31; Status DC Heparin Sodium (Porcine) 2,500 unit 1X ONCE INT CAT Last administered on 14:31; Start 05/17/16 at 12:30; Stop 05/17/16 at 12:31; Status DC Heparin Sodium (Porcine) 85380 unit 10,000 unit STK-MED ONCE .ROUTE ; Start 05/17 at 12:26; Stop 05/17/16 at 12:27; Status DC Sodium Bicarbonate 50 meq/Sodium Chloride 1,050 ml @ 150 mls/hr Q7H IV Last administered on 05/18/16 11:46; Start 05/17/16 at 14:00 Albumin Human 100 ml @ 100 mls/hr 1X ONCE IV Last administered on 05/17/16 12 :54; Start 05/17/16 at 13:00; Stop 05/17/16 at 13:59; Status DC Sodium Chloride 1,000 ml @ 1,000 mls/hr 1X ONCE IV Last administered on 13:37; Start 05/17/16 at 13:00; Stop 05/17/16 at 13:59; Status DC Sodium Chloride 1,000 ml @ 1,000 mls/hr 1X ONCE IV Last administered on 09:00; Start 05/17/16 at 14:00; Stop 05/17/16 at 14:59; Status DC Sodium Chloride (Iv Sodium Chloride 0.9% 1000ml Bag) 1,000 ml @ 1,000 mls/hr 1X ONCE IV Last administered on 05/17/16 18:02; Start 05/17/16 at 14:15; Stop 05/17/16 at 15:14; Status DC Acetaminophen 650 mg 650 mg PRN Q6HRS PRN PEG MILD PAIN / TEMP; Start 05/17/16 at 15:45 Sodium Bicarbonate 8 meq/ Potassium Chloride 15 meq/ Miscellaneous Medication 5, 015.5 ml @ 1,000 mls/ hr Q5H1M IV Last administered on 05/17/16 18:01; Start 05/17/16 at 17:00; Stop 05/17/16 at 22:00; Status DC Vasopressin 40 unit/Dextrose 102 ml @ 6 mls/hr CONT PRN IV SEE I/O RECORD Last administered on 05/18/16 04:57; Start 05/17/16 at 16:15 Vasopressin 40 unit/Dextrose 102 ml @ 6 mls/hr CONT PRN IV SEE I/O RECORD; Start 05/17/16 at 16:30; Status Cancel Sodium Bicarbonate 8 meq/ Potassium Chloride 15 meq/ Miscellaneous Medication 5, 015.5 ml @ 1,500 mls/ hr Q3H21M IV Last administered on 05/17/16 17:59; Start 05/17/16 at 17:00; Stop 05/17/16 at 20:20; Status DC Sodium Bicarbonate/ Potassium Chloride/ Miscellaneous Medication (Prismasol Bgk 0/ 2.5) 5,015.5 ml @ 1,500 mls/ hr Q3H21M IV Last administered on 05/18/16 06: 24; Start 05/17/16 at 17:00; Stop 05/18/16 at 07:03; Status DC Metoprolol Tartrate 5 mg 5 mg Q6HRS IVP Last administered on 05/17/16 17:51; Start 05/17/16 at 17:00 Sodium Bicarbonate 40 meq/Potassium Chloride 15 meq/ Miscellaneous Medication 5, 047.5 ml @ 1,000 mls/ hr Q5H3M IV Last administered on 05/18/16 03:03; Start 05/17/16 at 22:00 Sodium Bicarbonate 40 meq/Potassium Chloride 15 meq/ Miscellaneous Medication 5, 047.5 ml @ 1,500 mls/ hr Q3H22M IV Last administered on 05/18/16 06:06; Start 05/17/16 at 20:00 Sodium Bicarbonate/ Potassium Chloride/ Miscellaneous Medication (Prismasol Bgk 0/ 2.5) 5,047.5 ml @ 1,500 mls/ hr Q3H22M IV Last administered on 05/18/16 06: 06; Start 05/17/16 at 20:00 Heparin Sodium (Porcine) 8900 unit 8,900 unit 1X ONCE IV Last administered on 05/17/16 19:53; Start 05/17/16 at 19:30; Stop 05/18/16 at 11:16; Status DC Heparin Sodium/ Dextrose 500 ml @ 0 mls/hr CONT PRN IV SEE I/O RECORD Last administered on 05/17/16 19:54; Start 05/17/16 at 19:30; Stop 05/18/16 at 11:16; Status DC Heparin Sodium (Porcine) 3,350 unit PRN Q6HRS PRN IV FOR UFH LEVEL LESS THAN 0.2; Start 05/17/16 at 19:30; Status Cancel Heparin Sodium (Porcine) 1650 unit 1,650 unit PRN Q6HRS PRN IV FOR UFH LEVEL 0.2 - 0.29 Last administered on 05/18/16 06:50; Start 05/17/16 at 19:30; Stop 05/18/16 at 11:16; Status DC Albumin Human 250 ml @ 62.5 mls/hr 1X ONCE IV Last administered on 05/17/16 21:47; Start 05/17/16 at 22:00; Stop 05/18/16 at 01:59; Status DC Dopamine HCl/ Dextrose 250 ml @ 20.837 mls/ hr CONT PRN IV SEE I/O RECORD Last administered on 05/18/16 11:43; Start 05/17/16 at 23:15 Vancomycin HCl 1 gm/Sodium Chloride 250 ml @ 250 mls/hr 1X ONCE IV Last administered on 05/17/16 23:51; Start 05/18/16 at 00:00; Stop 05/18/16 at 00:59; Status DC Albumin Human 500 ml @ 125 mls/hr 1X ONCE IV Last administered on 05/18/16 01 :08; Start 05/18/16 at 01:30; Stop 05/18/16 at 05:29; Status DC Albumin Human (Plasmanate) 250 ml @ 62.5 mls/hr 1X ONCE IV Last administered on 05/18/16 06:20; Start 05/18/16 at 06:30; Stop 05/18/16 at 10:29; Status DC Tobramycin Sulfate 1 each 1 each 1X ONCE MC ; Start 05/18/16 at 12:00; Stop 05/18 at 12:01; Status DC Metronidazole (FLAGYL 500Mmg PREMIX) 100 ml @ 100 mls/hr Q8HRS IV ; Start at 14:00 Albuterol/ Ipratropium 3 ml 3 ml 1X ONCE NEB Last administered on 05/18/16 10: 15; Start 05/18/16 at 10:15; Stop 05/18/16 at 10:16; Status DC Albumin Human (Plasmanate) 250 ml @ 62.5 mls/hr 1X ONCE IV ; Start 05/18/16 at 11:15; Stop 05/18/16 at 15:14 Pantoprazole Sodium (Protonix Vial) 40 mg DAILY IVP ; Start 05/18/16 at 14:00 Active Scripts Active Reported Thera M Plus Tablet (Multivits,Ca,Minerals/Iron/FA) 1 Each Tablet 1 Each PO DAILY Lactaid Fast Act (Lactase) 9,000 Unit Tab.chew 3,000 Unit PO PRN PRN Bacid Caplet (Acidoph/L.bulg/Bif.b/S.thermop) 1 Each Tablet 1 Each PO BID Atorvastatin Calcium 40 Mg Tablet 1 Tab PO QHS Aspirin Ec (Aspirin) 81 Mg Tablet.dr 1 Tab PO DAILY Acetaminophen 500 Mg Tablet 650 Mg PO Q6HRS Acetaminophen 500 Mg Tablet 2 Tab PO Q6HRS FENTANYL 75mcg/hr (Fentanyl) 1 Each Patch.td72 1 Patch TP Q3DAYS Diflucan (Fluconazole) 150 Mg Tablet 150 Mg PO DAILY Lidocaine Hcl 5 Ml Jel..ml. 5 Ml MM PRN QID PRN Baclofen 10 Mg Tablet 30 Mg PO QID Hydrocortisone Acetate 28.4 Gm Cream..g. 28.4 Gm TP PRN BID PRN Hydrocodone-Apap 5-325 (Hydrocodone Bit/Acetaminophen) 1 Each Tablet 1 Tab PO PRN Q4-6HRS PRN Celebrex (Celecoxib) 100 Mg Capsule 1 Cap PO DAILY Senna (Sennosides) 8.6 Mg Tablet 8.6 Mg PO QHS Zofran (Ondansetron Hcl) 4 Mg Tablet 1 Tab PO PRN Q4HRS PRN Robitussin Cough-Chest Dm Liq (Guaifenesin/Dextromethorphan) 118 Ml Liquid 10 Ml PO PRN Q4HRS PRN Hydralazine Hcl 10 Mg Tablet 1 Tab PO PRN TID PRN Gabapentin 300 Mg Capsule 900 Mg PO QID Midodrine Hcl 10 Mg Tablet 10 Mg PO PRN Q3HRS PRN Protonix (Pantoprazole Sodium) 20 Mg Tablet.dr 1 Tab PO DAILY Lyrica (Pregabalin) 50 Mg Capsule 1 Cap PO QID Oxybutynin Chloride 5 Mg Tablet 1 Tab PO TID Pilocarpine Hcl 7.5 Mg Tablet 7.5 Mg PO QID Bacid Caplet (Acidoph/L.bulg/Bif.b/S.thermop) 1 Each Tablet 1 Each PO BID Multiple Vitamin (Multivitamin With Minerals) 1 Each Tablet 1 Each PO DAILY Milk Of Magnesia (Magnesium Hydroxide) 2,400 Mg/10 Ml Oral.susp 2,400 Mg PO PRN DAILY PRN Bisacodyl 10 Mg Supp.rect 10 Mg RC QODAY Cyclobenzaprine Hcl 10 Mg Tablet 10 Mg PO QHS Colace (Docusate Sodium) 100 Mg Capsule 100 Mg PO BID Vitamin D (Cholecalciferol (Vitamin D3)) 1,000 Unit Tablet 1,000 Unit PO DAILY Bisacodyl 5 Mg Tablet.dr 10 Mg PO PRN BID PRN Vitals/I & O Vital Sign - Last 24 Hours 05/17/16 05/17/16 05/17/16 05/17/16 13:53 14:00 15:00 16:00 Pulse 158 158 158 Resp 20 20 20 B/P 104/72 102/78 74/56 O2 Delivery Ventilator Ventilator Ventilator Ventilator 05/17/16 05/17/16 05/17/16 05/17/16 16:00 16:07 17:00 17:51 Pulse 158 125 Resp 20 B/P 70/50 86/70 Pulse Ox 95 O2 Delivery Mechanical Ventilator Ventilator Ventilator 05/17/16 05/17/16 05/17/16 05/17/16 18:00 18:08 19:00 20:00 Temp 97.4 97.0 97.4 97.0 Pulse 158 139 139 Resp 20 20 20 B/P 76/66 86/79 70/89 Pulse Ox 97 97 97 O2 Delivery Ventilator Ventilator Ventilator Ventilator 05/17/16 05/17/16 05/17/16 05/17/16 20:00 20:18 21:00 22:00 Temp 96.5 96.5 96.5 96.5 Pulse 118 99 Resp 20 20 B/P 71/65 69/65 Pulse Ox 97 98 98 O2 Delivery Mechanical Ventilator Ventilator Ventilator Ventilator 05/17/16 05/17/16 05/17/16 05/17/16 22:53 23:00 23:51 23:59 Temp 94.2 94.2 Pulse 107 109 Resp 20 B/P 48/42 54/50 Pulse Ox 98 95 O2 Delivery Ventilator Ventilator Mechanical Ventilator 05/18/16 05/18/16 05/18/16 05/18/16 00:00 01:00 01:25 02:00 Temp 92.0 90.0 90.0 92.0 90.0 90.0 Pulse 107 99 97 Resp 20 20 22 B/P 54/49 51/47 52/48 Pulse Ox 93 91 93 92 O2 Delivery Ventilator Ventilator Ventilator Ventilator 05/18/16 05/18/16 05/18/16 05/18/16 03:00 03:15 04:00 04:00 Temp 89.1 88.8 89.1 88.8 Pulse 96 95 Resp 22 22 B/P 59/48 55/51 Pulse Ox 92 93 94 O2 Delivery Ventilator Ventilator Ventilator Mechanical Ventilator 05/18/16 05/18/16 05/18/16 05/18/16 05:00 05:25 05:43 06:00 Temp 87.9 87.6 87.9 87.6 Pulse 98 97 95 Resp 22 22 B/P 69/59 68/61 74/62 Pulse Ox 96 94 96 O2 Delivery Ventilator Ventilator Ventilator 05/18/16 05/18/16 05/18/16 05/18/16 07:56 08:20 10:15 11:45 Pulse Ox 94 94 94 94 O2 Delivery Ventilator Ventilator Ventilator Ventilator Intake and Output 05/17/16 05/17/16 05/18/16 15:00 23:00 07:00 Intake Total 1000 ml Output Total 160 ml 95 ml 0 ml Balance 840 ml -95 ml 0 ml Nutrition Consultation Dietary Evaluation: Recommendations by RD: Increase Calorie Intake Comments: Rec. TF's when hemodynamically stable Left recommendation with nursing Novasource Renal, goal rate 45 ml/hr start at 15 ml/hr, increase by 15 ml/hr q8h to goal rate flushes PRN while on IVF's Rec. a daily MVT and 500 mg Vitamin C/day to aide with wound healing Expected Outcomes/Goals: TF initiation meet 75% estimated nutrition needs Malnutrition Findings: Reduced Medical Insurance Clerk Strength: N/A Reduced Medical Insurance Clerk Strength (Non-Sev: N/A Malnutrition related to morbid: No Weight Status: Obese RAJ ANDERS MD May 18, 2016 13:37
[2016-05-18] MEDS ORDERED: PANTOPRAZOLE IV PUSH 40 MG VIAL. IVP SCH (14:00)
[2016-05-18] MEDS ORDERED: METRONIDAZOLE 500mg PREMIX 100 ML IV SCH (14:00)
--- NOTE | 2016-05-18 14:00 | PDOC2 ---
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 (6-14) Blood Urea Nitrogen 24mg/dL (8-26) 14mg/dL (8-26) Creatinine 1.0mg/dL (0.7-1.3) 0.7mg/dL (0.7-1.3) Estimated GFR (Cockcroft-Gault) 85.0 128.3 Glucose Level 339mg/dL (70-99) 204mg/dL (70-99) Calcium Level 6.6mg/dL (8.5-10.1) 6.1mg/dL (8.5-10.1) Phosphorus Level 4.4mg/dL (2.6-4.7) 4.0mg/dL (2.6-4.7) Magnesium Level 2.2mg/dL (1.8-2.4) 2.1mg/dL (1.8-2.4) Prothrombin Time 37.0SEC (11.7-14.0) Prothromb Time International Ratio 4.0 (0.8-1.1) Heparin Anti-Xa Act, Unfractionated 0.29IU/mL (0.30-0.70) BUN/Creatinine Ratio 20 (6-20) Total Bilirubin 0.7mg/dL (0.2-1.0) Aspartate Amino Transf (AST/SGOT) 195U/L (15-37) Alanine Aminotransferase (ALT/SGPT) 70U/L (16-63) Alkaline Phosphatase 288U/L (46-116) Total Protein 3.1g/dL (6.4-8.2) Albumin 1.6g/dL (3.4-5.0) Albumin/Globulin Ratio 1.1 (1.0-1.7) Procalcitonin 44.20ng/mL (0.00-0.10) O2 Saturation 89% (92-99) Arterial Blood pH 7.07 (7.35-7.45) Arterial Blood pH (Temp corrected) 7.15 Arterial Blood pCO2 at Patient Temp 34mmHg (35-46) Arterial Blood pCO2 (Temp correct) 26mmHg Arterial Blood pO2 at Patient Temp 63mmHg (85-108) Arterial Blood pO2 (Temp corrected) 41mmHg Arterial Blood HCO3 10mmol/L (21-28) Arterial Blood Base Excess -19mmol/L (-3-3) FiO2 50 LESLIE BROWNING MD May 18, 2016 14:00
[2016-05-18 14:19] LABS: BASO # 0.1 x10^3/uL (0.0-0.2); BASO % 0 % (0-3); EOS % 1 % (0-3); LYMPH # 5.3 x10^3/uL (1.0-4.8); LYMPH % 18 % (24-48); MEAN CORPUSCULAR HEMOGLOBIN 31 pg (25-35); MEAN CORPUSCULAR HGB CONC 31 g/dL (31-37); MEAN CORPUSCULAR VOLUME 100 fL (79-100); MONO % 3 % (0-9); NEUT % 77 % (31-73); PLATELET COUNT 27 x10^3/uL (140-400); RED BLOOD COUNT 1.87 x10^6/uL (4.30-5.70); RED CELL DISTRIBUTION WIDTH 16.1 % (11.5-14.5)
[2016-05-18 14:27] LABS: HEMATOCRIT 18.7 % (39.0-53.0); HEMOGLOBIN 5.7 g/dL (13.0-17.5)
[2016-05-19 14:10] LABS: HEP B SURFACE ABDY Reactive (.)
== END 2016-05-18 13:00 | disposition expired | DRG 871 ==
LOC: ER 23:36 → 1 WEST ICU 05-17 01:50
PROVIDERS: ADMIT Internal Medicine; ATTEND Internal Medicine
PROC: 02H633Z Insertion of Infusion Device into Right Atrium, Percutaneous Approach (ICD-10-PCS; principal; 2016-05-17)
PROC: B244ZZZ Ultrasonography of Right Heart (ICD-10-PCS; 2016-05-17)
PROC: 5A1945Z Respiratory Ventilation, 24-96 Consecutive Hours (ICD-10-PCS; 2016-05-17)
PROC: 0BH17EZ Insertion of Endotracheal Airway into Trachea, Via Natural or Artificial Opening (ICD-10-PCS; 2016-05-17)
DX: A41.9 Sepsis, unspecified organism (principal); G82.50 Quadriplegia, unspecified; G92 Toxic encephalopathy; I50.31 Acute diastolic (congestive) heart failure; J18.9 Pneumonia, unspecified organism; J96.00 Acute respiratory failure, unspecified whether with hypoxia or hypercapnia; R65.21 Severe sepsis with septic shock; E87.1 Hypo-osmolality and hyponatremia; G93.1 Anoxic brain damage, not elsewhere classified; I47.1 Supraventricular tachycardia; N17.9 Acute kidney failure, unspecified; N39.0 Urinary tract infection, site not specified; F32.9 Major depressive disorder, single episode, unspecified; D69.6 Thrombocytopenia, unspecified; E11.9 Type 2 diabetes mellitus without complications; E78.5 Hyperlipidemia, unspecified; E87.5 Hyperkalemia; I11.0 Hypertensive heart disease with heart failure; K21.9 Gastro-esophageal reflux disease without esophagitis; Z82.49 Family history of ischemic heart disease and other diseases of the circulatory system; Z86.14 Personal history of Methicillin resistant Staphylococcus aureus infection; Z87.891 Personal history of nicotine dependence; Z88.1 Allergy status to other antibiotic agents; Z79.899 Other long term (current) drug therapy; Z88.0 Allergy status to penicillin; Z88.8 Allergy status to other drugs, medicaments and biological substances
CPT/HCPCS: 36415; 36556; 36600; 51702; 71010; 74000; 76937; 80048; 80053; 80200; 81001; 82805; 83605; 83735; 84100; 84145; 85007; 85027; 85520; 85610; 85730; 86704; 86706; 87040; 87086; 87340; 87341; 87641; 87804; 93005; 93306; 94002; 94003; 94640; 96365; 96367; 96375; A4215; C1892; J0171; J0330; J0878; J1160; J1265; J1630; J1720; J1956; J2060; J2185; J2248; J2250; J3370; J3490; J7030; J7040; J7050; J7620; P9041; P9045; P9046; 99291-25